=== PATIENT | female | born 1990 ===

== ENCOUNTER 2017-04-07 02:17 | Inpatient (IN) | payer MEDICAID ==
[2017-04-07] MEDS ORDERED: Carboprost Tromethamine 250 MCG/1 ML Amp IM PRN (02:35)
[2017-04-07] MEDS ORDERED: Sodium Chloride 0.9% 10 ML Syringe FLUSH PRN ×2 (02:35→19:39)
[2017-04-07] MEDS ORDERED: Misoprostol 200 MCG Tab PO PRN (02:35)
[2017-04-07] MEDS ORDERED: Ampicillin 2 GM in Sodium Chloride 0.9% 100 ML IV ONE (02:35)
[2017-04-07] MEDS ORDERED: Sodium Chloride 0.9% 2.5 ML Syringe FLUSH PRN ×2 (02:35→19:39)
[2017-04-07] MEDS ORDERED: Water For Irrigation,Sterile 1,000 ML Container IRR PRN (02:35)
[2017-04-07] MEDS ORDERED: Methylergonovine 0.2 MG/1 ML Amp IM PRN (02:35)
[2017-04-07] MEDS ORDERED: Lidocaine 1% 50 ML MDV INJECT PRN (02:35)
[2017-04-07] MEDS ORDERED: Butorphanol 1 MG/ML SDV IVPUSH PRN (02:35)
[2017-04-07] MEDS ORDERED: Nalbuphine 10 MG/1 ML Vial IVPUSH PRN ×2 (02:35→20:20)
[2017-04-07] MEDS ORDERED: Oxytocin/Lactated Ringers 30 UNIT/500 ML BAG IV SCH ×2 (02:45→11:45)
[2017-04-07] MEDS: Lactated Ringers 1,000 ML IV SCH ×4 (02:45→15:15)
[2017-04-07] MEDS ORDERED: fentaNYL 100 MCG/2 ML SDV ONE ×3 (03:24→20:15)
[2017-04-07] MEDS ORDERED: Ropivacaine HCl/PF 100 ML ONE ×3 (03:25→15:58)
--- NOTE | 2017-04-07 03:54 | PCM.PREANE ---
Preanesthetic Assessment - Anesthesia/Transfusion/Family Hx Anesthesia History: Prior Anesthesia Without Reaction Transfusion History: No Prior Transfusion(s) - Review of Systems General: No Symptoms Pulmonary: No Symptoms Cardiovascular: Other (recent elevated BP) Gastrointestinal: Nausea, Vomiting Neurological: No Symptoms Other: Reports: Anxiety - Physical Assessment NPO Status Date: 04/07/17 NPO Status Time: 03:51 (sips/chips) Height: 5 ft 3 in Weight: 145 lb 1.027 oz ASA Class: 2 Mental Status: Alert & Oriented x3 Airway Class: Mallampati = 2 Dentition: Reports: Normal Dentition Thyro-Mental Finger Breadths: 3 Mouth Opening Finger Breadths: 3 ROM/Head Extension: Full Lungs: Clear to auscultation, Normal respiratory effort Cardiovascular: Regular Rate, Regular Rhythm - Allergies Allergies/Adverse Reactions: Allergies Allergy/AdvReac Type Severity Reaction Status Date / Time No Known Allergies Allergy Verified 04/17/16 00:10 - Blood Blood Available: No Product(s) Available: None - Anesthesia Plan Free Text/Narrative:: Labor Epidural - Acknowledgements Anesthesia Type Planned: Epidural Pt an Appropriate Candidate for the Planned Anesthesia: Yes Alternatives and Risks of Anesthesia Discussed w Pt/Guardian: Yes Pt/Guardian Understands and Agrees with Anesthesia Plan: Yes PreAnesthesia Questionnaire Cardiovascular History: Reports: Other (See Below) (elevated BP with starting yesterday) Respiratory History: Reports: Asthma (as a child) Gastrointestinal History: Reports: GERD, Helicobacter Pylori Genitourinary History: Reports: None Musculoskeletal History: Reports: None Neurological History: Reports: None Psychiatric History: Reports: None Endocrine/Metabolic History: Reports: None Hematologic History: Reports: None Immunologic History: Reports: None Oncologic (Cancer) History: Reports: None Dermatologic History: Reports: None - Past Surgical History HEENT Surgical History: Reports: Oral Surgery GI Surgical History: Reports: EGD - SUBSTANCE USE Smoking Status *Q: Former Smoker (quit a few years ago) Tobacco Use Within Last Twelve Months: No Recreational Drug Use History: No - HOME MEDS Home Medications: Home Meds . [No Known Home Meds] 04/12/16 [History] - CURRENT (IN HOUSE) MEDS Current Meds: Current Medications Butorphanol Tartrate (Stadol) 1 mg IVPUSH Q1H PRN PRN Reason: Pain Carboprost Tromethamine (Hemabate Ds) 250 mcg IM ASDIRECTED PRN PRN Reason: Post Hemorrhage Ampicillin Sodium 1 gm/ Sodium (Chloride) 50 mls @ 100 mls/hr IV Q4H OBED Lactated Ringer's (Ringers, Lactated) 1,000 mls @ 150 mls/hr IV ASDIRECTED OBED Oxytocin/Lactated Ringer's (Pitocin In Lr 30 Units/500 Ml) 30 unit in 500 mls @ 250 mls/hr IV TITRATE OBED PRN Reason: 250 MUNITS/MIN Stop: 04/07/17 04:44 Lidocaine HCl (Xylocaine 1%) 50 ml INJECT .ONCE PRN PRN Reason: Laceration repair Methylergonovine Maleate (Methergine) 0.2 mg IM ASDIRECTED PRN PRN Reason: Post Hemorrhage Misoprostol (Cytotec) 200 mcg PO .ONCE PRN PRN Reason: Post Hemorrhage Nalbuphine HCl (Nubain) 10 mg IVPUSH Q1H PRN PRN Reason: Pain (severe 7-10) Stop: 04/07/17 04:36 Sodium Chloride (Saline Flush) 10 ml FLUSH ASDIRECTED PRN PRN Reason: Keep Vein Open Sodium Chloride (Saline Flush) 2.5 ml FLUSH ASDIRECTED PRN PRN Reason: Keep Vein Open Sterile Water (Sterile Water For Irrigation) 1,000 ml IRR ASDIRECTED PRN PRN Reason: delivery Discontinued Medications Fentanyl (Sublimaze) Confirm Administered Dose 100 mcg .ROUTE .STK-MED ONE Stop: 04/07/17 03:25 Ampicillin Sodium 2 gm/ Sodium (Chloride) 100 mls @ 200 mls/hr IV ONETIME ONE Stop: 04/07/17 03:04 Ropivacaine (Naropin 0.2%) Confirm Administered Dose 100 mls @ as directed .ROUTE .STK-MED ONE Stop: 04/07/17 03:26
[2017-04-07] MEDS ORDERED: Gentamicin 40 MG/ML 2 ML Vial IV SCH (04:30)
[2017-04-07] MEDS ORDERED: Acetaminophen 500 MG Tab PO ONE ×2 (04:36→16:18)
[2017-04-07] MEDS: Ampicillin 1 GM in Sodium Chloride 0.9% 50 ML IV SCH ×4 (06:38→18:27)
[2017-04-07] MEDS ORDERED: Oxytocin/Lactated Ringers 30 UNIT/500 ML BAG ONE (11:33)
[2017-04-07] MEDS ORDERED: Bupivacaine 0.5% 10 ML SDV ONE ×3 (15:09→19:42)
[2017-04-07] MEDS ORDERED: Acetaminophen 500 MG Tab ONE (16:16)
[2017-04-07] MEDS ORDERED: ceFAZolin 2 GM in Premix Bag 1 BAG IV ONE (19:39)
[2017-04-07] MEDS ORDERED: Citric Acid/Sodium Citrate Solution 30 ML Cup PO SCH (19:45)
[2017-04-07] MEDS ORDERED: Lactated Ringers 1,000 ML IV SCH ×2 (19:45→21:00)
[2017-04-07] MEDS ORDERED: ceFAZolin 1 GM Vial ONE (19:56)
[2017-04-07] MEDS ORDERED: Ondansetron 4 MG/2 ML SDV ONE (19:56)
[2017-04-07] MEDS ORDERED: Oxytocin 10 Units/1 ML SDV ONE (19:56)
[2017-04-07] MEDS ORDERED: ePHEDrine 50 MG/ML SDV ONE (19:56)
[2017-04-07] MEDS ORDERED: Phenylephrine/Normal Saline 100 MCG/ML 10 ML Syringe ONE (20:16)
[2017-04-07] MEDS ORDERED: Naloxone 0.4 MG/ML Syringe IVPUSH PRN (20:20)
[2017-04-07] MEDS ORDERED: fentaNYL 100 MCG/2 ML SDV IVPUSH PRN (20:20)
[2017-04-07] MEDS ORDERED: Acetaminophen/oxyCODONE 325-5 MG Tab PO PRN ×2 (20:20→20:51)
[2017-04-07] MEDS ORDERED: Metoclopramide 10 MG/2 ML SDV ONE (20:29)
--- NOTE | 2017-04-07 20:50 | PCM.SN ---
- Free Text/Narrative Note: Called for . Please refer to OR record for further anesthesia charting.
[2017-04-07] MEDS ORDERED: Aluminum Hydroxide/Magnesium Hydroxide/Simethicone Susp 30 ML Cup PO PRN (20:51)
[2017-04-07] MEDS ORDERED: Bisacodyl 10 MG Supp RECTAL PRN (20:51)
[2017-04-07] MEDS ORDERED: Lanolin 100% Cream 7 GM Tube TOP PRN (20:51)
[2017-04-07] MEDS ORDERED: Ondansetron 4 MG/2 ML SDV IV PRN (20:51)
[2017-04-07] MEDS ORDERED: diphenhydrAMINE 50 MG/ML SDV IVPUSH PRN (20:51)
[2017-04-07] MEDS ORDERED: Simethicone 80 MG Tab.Chew PO PRN (20:51)
--- NOTE | 2017-04-07 21:06 | PCM.OPNOTE ---
- General Post-Op/Procedure Note Date of Surgery/Procedure: 04/07/17 Operative Procedure(s): Primary LTCS Findings: Viable female APGARs 7, 8 weight 3970 gm. Intact meconium stained placenta with 3V cord Pre Op Diagnosis: 39/6 week IUP. Arrest of dilation. meconium stained fluid. maternal fever/III Post-Op Diagnosis: same Anesthesia Technique: Spinal Primary Surgeon: Lena Doyle Fluid Replacement, Intraop: 1,000 Output, Urine Amount: 200 EBL in mLs: 1,000 Complications: none known Condition: Good Free Text/Narrative:: Dictation [id number]
[2017-04-07] MEDS ORDERED: Ketorolac 30 MG/ML SDV ONE (21:08)
--- NOTE | 2017-04-07 21:10 | PCM.POSTAN ---
POST ANESTHESIA ASSESSMENT - MENTAL STATUS Mental Status: alert, oriented - VITAL SIGNS Pulse Rate: 128 (EBL 1000) SaO2: 96 (2 LPM) Resp Rate: 20 Blood Pressure: 112/84 - RESPIRATORY Respiratory Status: respiratory rate WNL, airway patent, O2 saturation stable - CARDIOVASCULAR CV Status: pulse rate WNL, blood pressure stable - GASTROINTESTINAL GI Status: no symptoms - PAIN Pain Score: 0 - POST OP HYDRATION Hydration Status: adequate & stable
[2017-04-07] MEDS ORDERED: Morphine PF 10 MG/10 ML SDV ONE (21:39)
[2017-04-08] MEDS: Acetaminophen/oxyCODONE 325-5 MG Tab PO PRN (00:36)
--- NOTE | 2017-04-08 01:52 | OR ---
SURGEON: Lena Doyle M.D. DATE OF PROCEDURE: 04/07/2017 PREOPERATIVE DIAGNOSES: 1. A 39 and 6 weeks intrauterine . 2. Arrest of dilation. 3. Meconium-stained amniotic fluid. 4. Maternal fever. POSTOPERATIVE DIAGNOSES: 1. A 39 and 6 weeks intrauterine . 2. Arrest of dilation. 3. Meconium-stained amniotic fluid. 4. Maternal fever. PROCEDURE: Primary low transverse section. ANESTHESIA: Spinal. ESTIMATED BLOOD LOSS: 1000 mL. FLUID: 1000 mL crystalloid in OR. FINDINGS: Viable female, Apgars 7 at 1 minute, 8 at 5 minutes, weight of 3970 g. Meconium- stained amniotic fluid. Meconium-stained placenta with 3-vessel cord. Normal appearing pelvis. DISPOSITION: Patient to PACU in fair condition. to nursery. PROCEDURE IN DETAIL: Javier calvillo 26-year-old, primigravida at 39 and 6 weeks' gestational age, who was admitted on the early childhood teacher assistant of 04/07/2017, labor throughout the day. Had meconium-stained amniotic fluid. heart tones were intermittently between 150-180. After making minimal cervical change between the hours of 4:00 a.m. and 10:00 a.m., she was initiated on Pitocin, at that time, she was found to be 7 cm. She did not progress beyond 7 cm throughout the course of the day. An IUPC was placed. There was some dysfunctional pattern with uterine activity; however, despite efforts at increasing the Pitocin, there was still no cervical change. I assumed care of the patient shortly after 6:00 p.m. On my evaluation, the cervix feels swollen. Her heart tones are in the 150s to 160s with minimal variability. No accelerations are present. The patient has been on ampicillin and gentamicin. After discussion with her and her significant other regarding progress through the day and options at this point, they are opting to proceed with delivery. Risks of the procedure have been discussed with her including infection, bleeding, possible trauma surrounding bowel, bladder, ureter, in case of excessive blood loss, need for blood product transfusion, rare lifesaving circumstances, need for hysterectomy, risk for thromboembolic event, risk of anesthesia were discussed. The patient was taken to the operating room, where she had re-bolus of her epidural. She was placed in dorsal supine position with leftward tilt. SCDs to lower extremities. Cesar to gravity. Prepped and draped in usual sterile fashion. She received 2 g of Ancef. A time-out was performed. Anesthesia was tested and found to be adequate. A Pfannenstiel skin incision was now created, carried down to the level of the rectus fascia, was incised in midline, laterally either side sharply and bluntly. The superior aspect of fascia was tented up, dissected sharply and bluntly from underlying muscles. In similar aspect, it was performed with the inferior aspect of the fascia. Rectus muscle was in the midline. Peritoneum was lateralized bluntly. Uterine position and position palpated. Self-retaining retractor now gently placed. The uterovesical reflection was visualized. Bladder flap was created sharply and bluntly. Bladder was mobilized away from lower uterine segment. Low transverse hysterotomy was now performed. Uterine cavity was entered with the blunt end of the scalpel. Hysterotomy was lateralized bluntly. The fetus head was flexed and elevated from the pelvis. Fundal pressure was applied. The infant's head was delivered followed by anterior shoulder push, remainder of the body without difficulty. 's oropharynx and nares bulb suctioned. Cord clamped x2 and handed off to attending physician, Dr. Childers. Cord arterial, cord venous, cord blood sampling was obtained. Placenta was now delivered. We sent to Pathology for analysis. The uterine cavity was cleared of all clot and debris. Hysterotomy was repaired using 0 Vicryl in continuous running locked fashion followed by a re-imbricating layer. The areas of bleeding in midline were replicated with [id number] suture. Hemostasis was thereafter evident. Posterior aspect of the uterus inspected, no defects or hematomas found be forming. The region was well irrigated suction dried. Uterus remains slightly boggy, therefore the patient received dosing of Hemabate. Uterus returned to the abdominal cavity. Colonic gutters were cleared of all clot and debris. Hysterotomy was again inspected, found to be hemostatic, self- retaining retractor now gently removed. Hysterotomy was again inspected, found to be hemostatic. The rectus muscles reapproximated using 0 Vicryl in inverted mattress suture technique. Anterior aspect of the muscle, posterior aspect of the fascia closely inspected. Any areas of oozing were cauterized. The rectus fascia was reapproximated using 0 Vicryl in continuous running fashion beginning laterally and tied in the midline. Subcutaneous tissue was well irrigated suction dried. Any oozing was cauterized. The skin edges were reapproximated using 3-0 Vicryl in a Bob needle in subcuticular fashion followed by reinforcement with 1/2- inch Steri-Strips and Mastisol. Sponge, instrument, needle count correct x2. Uterine massage revealed that the uterus is remaining firm and hemostasis appears evident. The patient will go to PACU in fair condition. Infant to nursery. RAMBO / CLAUDETTE /[id number]
[2017-04-08] MEDS: Ampicillin/Sulbactam Na 1.5 GM in Sodium Chloride 0.9% 50 ML IV SCH ×4 (03:38→21:46)
[2017-04-08] MEDS: Ketorolac 30 MG/ML SDV IVPUSH SCH ×4 (03:48→21:35)
--- NOTE | 2017-04-08 05:03 | PCM.PNPP ---
- General Info Date of Service: 04/08/17 Functional Status: Reports: pain controlled, tolerating diet - Review of Systems General: Denies: Fever, Weakness Cardiovascular: Denies: Chest Pain, Palpitations, Lightheadedness Gastrointestinal: Reports: Abdominal pain (incisional pain is controlled). Denies: Nausea, Vomiting Genitourinary: Denies: flank pain Psychiatric: Reports: no symptoms - General Info Date of Service: 04/08/17 - Patient Data Vital Signs - most recent: Last Vital Signs Temp 37.0 C 04/08/17 04:00 Pulse 117 H 04/08/17 04:00 Resp 16 04/08/17 04:00 BP 117/68 04/08/17 04:00 Pulse Ox 97 04/08/17 04:00 Weight - most recent: 82 kg I&O - last 24 hours: Intake & Output 04/07/17 04/07/17 04/08/17 14:59 22:59 06:59 Intake Total 2000 900 Output Total 600 850 Balance 1400 50 Lab Results - last 24 hrs: Laboratory Results - last 24 hr 04/07/17 04/07/17 04/07/17 Range/Units 04:30 05:41 05:41 WBC 16.82 H (4.0-11.0) K/uL RBC 3.65 L (4.30-5.90) M/uL Hgb 9.5 L (12.0-16.0) g/dL Hct 29.0 L (36.0-46.0) % MCV 79.5 L (80.0-98.0) fL MCH 26.0 L (27.0-32.0) pg MCHC 32.8 (31.0-37.0) g/dL RDW Std Deviation 41.9 (28.0-62.0) fl RDW Coeff of Carlos 15 (11.0-15.0) % Plt Count 193 (150-400) K/uL MPV 9.80 (7.40-12.00) fL Neut % (Auto) (48.0-80.0) % Lymph % (Auto) (16.0-40.0) % [place] % (Auto) (0.0-15.0) % Eos % (Auto) (0.0-7.0) % Baso % (Auto) (0.0-1.5) % Neut # (Auto) (1.4-5.7) K/uL Lymph # (Auto) (0.6-2.4) K/uL Norton # (Auto) (0.0-0.8) K/uL Eos # (Auto) (0.0-0.7) K/uL Baso # (Auto) (0.0-0.1) K/uL Neutrophils % (Manual) (48.0-80.0) % Band Neutrophils % % Lymphocytes % (Manual) (16.0-40.0) % Monocytes % (Manual) (0.0-15.0) % Nucleated RBC % 0.0 /100WBC Absolute Seg Neuts Band Neutrophils # Lymphocytes # (Manual) Monocytes # (Manual) Nucleated RBCs # 0 K/uL Urine Color YELLOW Urine Appearance CLEAR Urine pH 5.5 (5.0-8.0) Ur Specific [place] <= 1.005 (1.001-1.035) Urine Protein NEGATIVE (NEGATIVE) mg/dL Urine Glucose (UA) NEGATIVE (NEGATIVE) mg/dL Urine Ketones 15 H (NEGATIVE) mg/dL Urine Occult Blood TRACE-INTACT (NEGATIVE) Urine Nitrite NEGATIVE (NEGATIVE) Urine Bilirubin NEGATIVE (NEGATIVE) Urine Urobilinogen 0.2 (<2.0) EU/dL Ur Leukocyte Esterase NEGATIVE (NEGATIVE) Blood Type O POSITIVE Antibody Screen NEGATIVE 04/07/17 Range/Units 21:52 WBC 18.20 H (4.0-11.0) K/uL RBC 3.14 L (4.30-5.90) M/uL Hgb 8.1 L (12.0-16.0) g/dL Hct 25.2 L (36.0-46.0) % MCV 80.3 (80.0-98.0) fL MCH 25.8 L (27.0-32.0) pg MCHC 32.1 (31.0-37.0) g/dL RDW Std Deviation 43.4 (28.0-62.0) fl RDW Coeff of Carlos 15 (11.0-15.0) % Plt Count 183 (150-400) K/uL MPV 9.30 (7.40-12.00) fL Neut % (Auto) 89.8 H (48.0-80.0) % Lymph % (Auto) 7.0 L (16.0-40.0) % Norton % (Auto) 3.2 (0.0-15.0) % Eos % (Auto) 0.0 (0.0-7.0) % Baso % (Auto) 0.0 (0.0-1.5) % Neut # (Auto) 16.3 H (1.4-5.7) K/uL Lymph # (Auto) 1.3 (0.6-2.4) K/uL Norton # (Auto) 0.6 (0.0-0.8) K/uL Eos # (Auto) 0.0 (0.0-0.7) K/uL Baso # (Auto) 0.0 (0.0-0.1) K/uL Neutrophils % (Manual) 68 (48.0-80.0) % Band Neutrophils % 19 % Lymphocytes % (Manual) 9 L (16.0-40.0) % Monocytes % (Manual) 4 (0.0-15.0) % Nucleated RBC % 0.0 /100WBC Absolute Seg Neuts 12.4 Band Neutrophils # 3.5 Lymphocytes # (Manual) 1.6 Monocytes # (Manual) 0.7 Nucleated RBCs # 0 K/uL Urine Color Urine Appearance Urine pH (5.0-8.0) Ur Specific [place] (1.001-1.035) Urine Protein (NEGATIVE) mg/dL Urine Glucose (UA) (NEGATIVE) mg/dL Urine Ketones (NEGATIVE) mg/dL Urine Occult Blood (NEGATIVE) Urine Nitrite (NEGATIVE) Urine Bilirubin (NEGATIVE) Urine Urobilinogen (<2.0) EU/dL Ur Leukocyte Esterase (NEGATIVE) Blood Type Antibody Screen Med Orders - Current: Current Medications Al Hydroxide/Mg Hydroxide (Mag-Al Plus) 30 ml PO Q8H PRN PRN Reason: Heartburn Bisacodyl (Dulcolax) 10 mg RECTAL .ONCE PRN PRN Reason: Constipation Carboprost Tromethamine (Hemabate Ds) 250 mcg IM ASDIRECTED PRN PRN Reason: Post Hemorrhage Diphenhydramine HCl (Benadryl) 25 mg IVPUSH Q6H PRN PRN Reason: Itching or Nausea Docusate Sodium (Colace) 100 mg PO BID OBED Emollient Ointment (Lansinoh Hpa) 0 gm TOP ASDIRECTED PRN PRN Reason: Sore Nipples Fentanyl (Sublimaze) 50 mcg IVPUSH Q5M PRN PRN Reason: Pain (severe 7-10) Stop: 04/08/17 20:20 Lactated Ringer's (Ringers, Lactated) 1,000 mls @ 150 mls/hr IV ASDIRECTED [facility] Last Admin: 04/07/17 15:15 Dose: 150 mls/hr Gentamicin Sulfate 100 mg/ (Sodium Chloride) 52.5 mls @ 105 mls/hr IV Q8H [facility] Last Admin: 04/07/17 12:43 Dose: 105 mls/hr Oxytocin/Lactated Ringer's (Pitocin In Lr 30 Units/500 Ml) 30 unit in 500 mls @ 2 mls/hr IV TITRATE OBED; 2 MUNITS/MIN PRN Reason: Protocol Last Titration: 04/07/17 19:05 Dose: 32 munits/min, 32 mls/hr Lactated Ringer's (Ringers, Lactated) 1,000 mls @ 500 mls/hr IV ASDIRECTED [facility] Stop: 04/08/17 21:44 Lactated Ringer's (Ringers, Lactated) 1,000 mls @ 125 mls/hr IV ASDIRECTED [facility] Ampicillin Sodium/Sulbactam (Sodium 1.5 gm/ Sodium Chloride) 50 mls @ 200 mls/ hr IV Q6H [facility] Last Admin: 04/08/17 03:38 Dose: 200 mls/hr Ibuprofen (Motrin) 800 mg PO Q8H PRN PRN Reason: mild pain or fever Ketorolac Tromethamine (Toradol) 30 mg IVPUSH Q6H [facility] Stop: 04/08/17 21:01 Last Admin: 04/08/17 03:48 Dose: 30 mg Methylergonovine Maleate (Methergine) 0.2 mg IM ASDIRECTED PRN PRN Reason: Post Hemorrhage Nalbuphine HCl (Nubain) 5 mg IVPUSH Q3H PRN PRN Reason: Pruritis Stop: 04/08/17 20:20 Naloxone HCl (Narcan) 0.1 mg IVPUSH ONETIME PRN PRN Reason: Respiratory Depression Stop: 04/08/17 20:21 Ondansetron HCl (Zofran) 4 mg IV Q4H PRN PRN Reason: Nausea/Vomiting Oxycodone/Acetaminophen (Percocet 325-5 Mg) 2 tab PO ONETIME PRN PRN Reason: Pain (moderate 4-6) Oxycodone/Acetaminophen (Percocet 325-5 Mg) 1 tab PO Q4H PRN PRN Reason: Pain (moderate 4-6) Last Admin: 04/08/17 00:36 Dose: 1 tab Oxycodone/Acetaminophen (Percocet 325-5 Mg) 2 tab PO Q4H PRN PRN Reason: Pain (moderate 4-6) Simethicone (Simethicone) 80 mg PO Q4H PRN PRN Reason: Gas Sodium Chloride (Saline Flush) 2.5 ml FLUSH ASDIRECTED PRN PRN Reason: Keep Vein Open Discontinued Medications Acetaminophen (Tylenol Extra Strength) 1,000 mg PO ONETIME ONE Stop: 04/07/17 04:37 Last Admin: 04/07/17 05:01 Dose: 1,000 mg Acetaminophen (Tylenol Extra Strength) 1,000 mg PO ONETIME ONE Stop: 04/07/17 16:19 Last Admin: 04/07/17 16:19 Dose: 1,000 mg Acetaminophen (Tylenol Extra Strength) Confirm Administered Dose 1,000 mg .ROUTE .STK-MED ONE Stop: 04/07/17 16:17 Bupivacaine HCl (Sensorcaine-Mpf 0.5%) Confirm Administered Dose 10 ml .ROUTE .STK-MED ONE Stop: 04/07/17 15:10 Bupivacaine HCl (Sensorcaine-Mpf 0.5%) Confirm Administered Dose 10 ml .ROUTE .STK-MED ONE Stop: 04/07/17 15:36 Bupivacaine HCl (Sensorcaine-Mpf 0.5%) Confirm Administered Dose 20 ml .ROUTE .STK-MED ONE Stop: 04/07/17 19:43 Butorphanol Tartrate (Stadol) 1 mg IVPUSH Q1H PRN PRN Reason: Pain Last Admin: 04/07/17 02:59 Dose: 1 mg Cefazolin Sodium (Ancef) Confirm Administered Dose 2 gm .ROUTE .STK-MED ONE Stop: 04/07/17 19:57 Citric Acid/Sodium Citrate (Bicitra Solution) 30 ml PO .ONCE OBED Ephedrine Sulfate (Ephedrine Sulfate) Confirm Administered Dose 50 mg .ROUTE .STK-MED ONE Stop: 04/07/17 19:57 Fentanyl (Sublimaze) Confirm Administered Dose 100 mcg .ROUTE .STK-MED ONE Stop: 04/07/17 03:25 Fentanyl (Sublimaze) Confirm Administered Dose 100 mcg .ROUTE .STK-MED ONE Stop: 04/07/17 15:36 Fentanyl (Sublimaze) Confirm Administered Dose 100 mcg .ROUTE .STK-MED ONE Stop: 04/07/17 20:16 Gentamicin Sulfate (Gentamicin) 100 mg IV Q8H [facility] Ampicillin Sodium 2 gm/ Sodium (Chloride) 100 mls @ 200 mls/hr IV ONETIME ONE Stop: 04/07/17 03:04 Last Admin: 04/07/17 03:18 Dose: 200 mls/hr Ampicillin Sodium 1 gm/ Sodium (Chloride) 50 mls @ 100 mls/hr IV Q4H [facility] Last Admin: 04/07/17 18:27 Dose: 100 mls/hr Oxytocin/Lactated Ringer's (Pitocin In Lr 30 Units/500 Ml) 30 unit in 500 mls @ 250 mls/hr IV TITRATE [facility] PRN Reason: 250 MUNITS/MIN Stop: 04/07/17 04:44 Ropivacaine (Naropin 0.2%) Confirm Administered Dose 100 mls @ as directed .ROUTE .STK-MED ONE Stop: 04/07/17 03:26 Oxytocin/Lactated Ringer's (Pitocin In Lr 30 Units/500 Ml) Confirm Administered Dose 30 unit in 500 mls @ as directed .ROUTE .ST-MED ONE Stop: 04/07/17 11:34 Ropivacaine (Naropin 0.2%) Confirm Administered Dose 100 mls @ as directed .ROUTE .STK-MED ONE Stop: 04/07/17 12:28 Ropivacaine (Naropin 0.2%) Confirm Administered Dose 100 mls @ as directed .ROUTE .STK-MED ONE Stop: 04/07/17 15:59 Cefazolin Sodium/Dextrose 2 gm (/ Premix) 50 mls @ 100 mls/hr IV ONETIME ONE Stop: 04/07/17 20:08 Ketorolac Tromethamine (Toradol) Confirm Administered Dose 30 mg .ROUTE .STK- MED ONE Stop: 04/07/17 21:09 Last Admin: 04/07/17 21:21 Dose: 30 mg Lidocaine HCl (Xylocaine 1%) 50 ml INJECT .ONCE PRN PRN Reason: Laceration repair Metoclopramide HCl (Reglan) Confirm Administered Dose 10 mg .ROUTE .STK-MED ONE Stop: 04/07/17 20:30 Misoprostol (Cytotec) 200 mcg PO .ONCE PRN PRN Reason: Post Hemorrhage Morphine Sulfate (Duramorph Pf) Confirm Administered Dose 10 mg .ROUTE .STK-MED ONE Stop: 04/07/17 21:40 Nalbuphine HCl (Nubain) 10 mg IVPUSH Q1H PRN PRN Reason: Pain (severe 7-10) Stop: 04/07/17 04:36 Ondansetron HCl (Zofran) Confirm Administered Dose 8 mg .ROUTE .STK-MED ONE Stop: 04/07/17 19:57 Oxytocin (Pitocin) Confirm Administered Dose 30 unit .ROUTE .STK-MED ONE Stop: 04/07/17 19:57 Phenylephrine HCl (Phenylephrine In Ns 100 Mcg/Ml) Confirm Administered Dose 1 mg .ROUTE .STK-MED ONE Stop: 04/07/17 20:17 Sodium Chloride (Saline Flush) 10 ml FLUSH ASDIRECTED PRN PRN Reason: Keep Vein Open Sodium Chloride (Saline Flush) 10 ml FLUSH ASDIRECTED PRN PRN Reason: Keep Vein Open Sodium Chloride (Saline Flush) 2.5 ml FLUSH ASDIRECTED PRN PRN Reason: Keep Vein Open Sterile Water (Sterile Water For Irrigation) 1,000 ml IRR ASDIRECTED PRN PRN Reason: delivery - Interaction Support Person: Significant Other - Recovery Exam Lochia Amount: None Lochia Color: Rubra/Red Perineum Description: Intact, Minimal Bruising/Swelling - Exam General: alert, oriented Lungs: Clear to auscultation, Normal respiratory effort Cardiovascular: Regular Rhythm, Tachycardia Abdomen: bowel sounds present, soft. No: CVA tenderness Extremities: no calf tenderness, edema (1+ pedal edema) Skin: warm, dry Wound/Incisions: dressing dry and intact Neurological: no new focal deficit Psy/Mental Status: alert, normal affect - Problem List & Annotations (1) delivery delivered SNOMED Code(s): 650901817 Code(s): O82 - ENCOUNTER FOR DELIVERY WITHOUT INDICATION Status: Acute Current Visit: Yes - Problem List Review Problem List Initiated/Reviewed/Updated: Yes - My Orders Last 24 Hours: My Active Orders 04/07/17 19:39 Procedure Site Prep Instruct [RC] ASDIRECTED Verify Patient Consent Obtain [RC] ASDIRECTED Peripheral IV Insertion Adult [OM.PC] Routine 04/07/17 19:45 Lactated Ringers [Ringers, Lactated] 1,000 ml IV ASDIRECTED 04/07/17 20:51 Patient Status [ADT] Routine Ambulate [RC] PER UNIT ROUTINE Communication Order [RC] PER UNIT ROUTINE Communication Order [RC] PER UNIT ROUTINE Communication Order [RC] Per Unit Routine May Shower [RC] ASDIRECTED Notify Provider Intake and Out [RC] ASDIRECTED Notify Provider Vital Signs [RC] ASDIRECTED RT Incentive Spirometry [RC] Q2HWA Vital Signs [RC] PER UNIT ROUTINE Acetaminophen/oxyCODONE [Percocet 325-5 MG] 1 tab PO Q4H PRN Acetaminophen/oxyCODONE [Percocet 325-5 MG] 2 tab PO Q4H PRN Alum Hydrox/Mag Hydrox/Simeth [Mag-Al Plus] 30 ml PO Q8H PRN Bisacodyl [Dulcolax] 10 mg RECTAL .ONCE PRN Ibuprofen [Motrin] 800 mg PO Q8H PRN Lanolin [Lansinoh HPA] See Dose Instructions TOP ASDIRECTED PRN Ondansetron [Zofran] 4 mg IV Q4H PRN Simethicone 80 mg PO Q4H PRN diphenhydrAMINE [Benadryl] 25 mg IVPUSH Q6H PRN Abdominal Binder [OM.PC] Routine Assess Lochia [WOMSER] Per Unit Routine Assess Uterine Involution [WOMSER] Per Unit Routine Breast Pump [WOMSER] Per Unit Routine Heat Therapy [OM.PC] Routine Ice Therapy [OM.PC] Routine Peripheral IV Discontinue [OM.PC] Routine Sequential Compression Device [OM.PC] Per Unit Routine 04/07/17 20:52 Antiembolic Devices [RC] PER UNIT ROUTINE 04/07/17 21:00 Docusate Sodium [Colace] 100 mg PO BID Lactated Ringers [Ringers, Lactated] 1,000 ml IV ASDIRECTED 04/07/17 Dinner Regular Diet [DIET] 04/08/17 02:00 Ampicillin/Sulbactam Na [Unasyn] 1.5 gm Sodium Chloride 0.9% [Normal Saline] 50 ml IV Q6H 04/08/17 03:00 Ketorolac [Toradol] 30 mg IVPUSH Q6H - Assessment Assessment:: POD 1 status post Primary LTCS Maternal fever in labor - Plan Plan:: Continue postoperative cares. Ambulate today, remove jiménez later Reevaluate hemoglobin today--was 8.1 last night from 9.5 upon admission Continue 24 hour unasyn prophylaxis for maternal fever in labor
[2017-04-08] MEDS: Lactated Ringers 1,000 ML IV SCH (06:14)
--- NOTE | 2017-04-08 06:43 | PCM48HPAN ---
Post Anesthesia Note - EVALUATION WITHIN 48HRS OF ANESTHETIC Vital Signs in Normal Range: Yes Patient Participated in Evaluation: Yes Respiratory Function Stable: Yes Airway Patent: Yes Cardiovascular Function Stable: Yes Hydration Status Stable: Yes Pain Control Satisfactory: Yes Nausea and Vomiting Control Satisfactory: Yes Mental Status Recovered: Yes - COMMENTS/OBSERVATIONS Free Text/Narrative:: PO and IV pain RX started during NOC. Pain well controlled at this time. Awaiting AM HgB results.
[2017-04-08] MEDS: Docusate Sodium 100 MG Cap PO SCH (21:36)
[2017-04-09] MEDS: Ampicillin/Sulbactam Na 1.5 GM in Sodium Chloride 0.9% 50 ML IV SCH ×2 (05:03→10:45)
[2017-04-09] MEDS: Docusate Sodium 100 MG Cap PO SCH ×5 (06:40→21:22)
--- NOTE | 2017-04-09 07:01 | PCM.PNPP ---
- General Info Date of Service: 04/09/17 Functional Status: Reports: pain controlled (has not been using any pain medication.), tolerating diet, ambulating (no dizziness or shortness of breath with ambulation), urinating - Review of Systems General: Reports: No Symptoms HEENT: Reports: no symptoms Pulmonary: Reports: no symptoms Cardiovascular: Reports: No Symptoms Gastrointestinal: Reports: No symptoms Genitourinary: Reports: no symptoms Musculoskeletal: Reports: no symptoms Skin: Reports: no symptoms Neurological: Reports: No Symptoms Psychiatric: Reports: no symptoms - Patient Data Vital Signs - most recent: Last Vital Signs Temp 36.1 C 04/09/17 05:01 Pulse 113 H 04/09/17 05:01 Resp 16 04/09/17 05:01 BP 139/86 04/09/17 05:01 Pulse Ox 95 04/09/17 05:01 Weight - most recent: 82 kg I&O - last 24 hours: Intake & Output 04/08/17 04/08/17 04/09/17 14:59 22:59 06:59 Intake Total 120 Output Total 875 Balance -755 Lab Results - last 24 hrs: Laboratory Results - last 24 hr 04/08/17 Range/Units 07:22 WBC 19.93 H (4.0-11.0) K/uL RBC 2.61 L (4.30-5.90) M/uL Hgb 7.0 L (12.0-16.0) g/dL Hct 20.6 L (36.0-46.0) % MCV 78.9 L (80.0-98.0) fL MCH 26.8 L (27.0-32.0) pg MCHC 34.0 (31.0-37.0) g/dL RDW Std Deviation 43.2 (28.0-62.0) fl RDW Coeff of Carlos 15 (11.0-15.0) % Plt Count 169 (150-400) K/uL MPV 9.40 (7.40-12.00) fL Add Manual Diff YES Neutrophils % (Manual) 58 (48.0-80.0) % Band Neutrophils % 23 % Lymphocytes % (Manual) 16 (16.0-40.0) % Monocytes % (Manual) 2 (0.0-15.0) % Metamyelocytes % 1 % Nucleated RBC % 0.0 /100WBC Absolute Seg Neuts 11.6 Band Neutrophils # 4.6 Lymphocytes # (Manual) 3.2 Monocytes # (Manual) 0.4 Absolute Metamyelocyte 0.2 Nucleated RBCs # 0 K/uL Med Orders - Current: Current Medications Al Hydroxide/Mg Hydroxide (Mag-Al Plus) 30 ml PO Q8H PRN PRN Reason: Heartburn Bisacodyl (Dulcolax) 10 mg RECTAL .ONCE PRN PRN Reason: Constipation Carboprost Tromethamine (Hemabate Ds) 250 mcg IM ASDIRECTED PRN PRN Reason: Post Hemorrhage Diphenhydramine HCl (Benadryl) 25 mg IVPUSH Q6H PRN PRN Reason: Itching or Nausea Docusate Sodium (Colace) 100 mg PO BID [facility] Last Admin: 04/09/17 06:40 Dose: Not Given Emollient Ointment (Lansinoh Hpa) 0 gm TOP ASDIRECTED PRN PRN Reason: Sore Nipples Last Admin: 04/08/17 09:25 Dose: 1 applic Lactated Ringer's (Ringers, Lactated) 1,000 mls @ 150 mls/hr IV ASDIRECTED [facility] Last Admin: 04/08/17 06:14 Dose: 150 mls/hr Lactated Ringer's (Ringers, Lactated) 1,000 mls @ 125 mls/hr IV ASDIRECTED [facility] Ampicillin Sodium/Sulbactam (Sodium 1.5 gm/ Sodium Chloride) 50 mls @ 200 mls/ hr IV Q6H [facility] Last Admin: 04/09/17 05:03 Dose: Not Given Ibuprofen (Motrin) 800 mg PO Q8H PRN PRN Reason: mild pain or fever Methylergonovine Maleate (Methergine) 0.2 mg IM ASDIRECTED PRN PRN Reason: Post Hemorrhage Ondansetron HCl (Zofran) 4 mg IV Q4H PRN PRN Reason: Nausea/Vomiting Oxycodone/Acetaminophen (Percocet 325-5 Mg) 2 tab PO ONETIME PRN PRN Reason: Pain (moderate 4-6) Oxycodone/Acetaminophen (Percocet 325-5 Mg) 1 tab PO Q4H PRN PRN Reason: Pain (moderate 4-6) Last Admin: 04/08/17 00:36 Dose: 1 tab Oxycodone/Acetaminophen (Percocet 325-5 Mg) 2 tab PO Q4H PRN PRN Reason: Pain (moderate 4-6) Simethicone (Simethicone) 80 mg PO Q4H PRN PRN Reason: Gas Sodium Chloride (Saline Flush) 2.5 ml FLUSH ASDIRECTED PRN PRN Reason: Keep Vein Open Discontinued Medications Acetaminophen (Tylenol Extra Strength) 1,000 mg PO ONETIME ONE Stop: 04/07/17 04:37 Last Admin: 04/07/17 05:01 Dose: 1,000 mg Acetaminophen (Tylenol Extra Strength) 1,000 mg PO ONETIME ONE Stop: 04/07/17 16:19 Last Admin: 04/07/17 16:19 Dose: 1,000 mg Acetaminophen (Tylenol Extra Strength) Confirm Administered Dose 1,000 mg .ROUTE .STK-MED ONE Stop: 04/07/17 16:17 Last Admin: 04/08/17 23:18 Dose: Not Given Bupivacaine HCl (Sensorcaine-Mpf 0.5%) Confirm Administered Dose 10 ml .ROUTE .STK-MED ONE Stop: 04/07/17 15:10 Last Admin: 04/08/17 23:18 Dose: Not Given Bupivacaine HCl (Sensorcaine-Mpf 0.5%) Confirm Administered Dose 10 ml .ROUTE .STK-MED ONE Stop: 04/07/17 15:36 Last Admin: 04/08/17 23:18 Dose: Not Given Bupivacaine HCl (Sensorcaine-Mpf 0.5%) Confirm Administered Dose 20 ml .ROUTE .STK-MED ONE Stop: 04/07/17 19:43 Last Admin: 04/08/17 23:21 Dose: Not Given Butorphanol Tartrate (Stadol) 1 mg IVPUSH Q1H PRN PRN Reason: Pain Last Admin: 04/07/17 02:59 Dose: 1 mg Cefazolin Sodium (Ancef) Confirm Administered Dose 2 gm .ROUTE .STK-MED ONE Stop: 04/07/17 19:57 Citric Acid/Sodium Citrate (Bicitra Solution) 30 ml PO .ONCE OBED Ephedrine Sulfate (Ephedrine Sulfate) Confirm Administered Dose 50 mg .ROUTE .STK-MED ONE Stop: 04/07/17 19:57 Fentanyl (Sublimaze) Confirm Administered Dose 100 mcg .ROUTE .STK-MED ONE Stop: 04/07/17 03:25 Last Admin: 04/08/17 23:17 Dose: Not Given Fentanyl (Sublimaze) Confirm Administered Dose 100 mcg .ROUTE .STK-MED ONE Stop: 04/07/17 15:36 Last Admin: 04/08/17 23:18 Dose: Not Given Fentanyl (Sublimaze) Confirm Administered Dose 100 mcg .ROUTE .STK-MED ONE Stop: 04/07/17 20:16 Fentanyl (Sublimaze) 50 mcg IVPUSH Q5M PRN PRN Reason: Pain (severe 7-10) Stop: 04/08/17 20:20 Gentamicin Sulfate (Gentamicin) 100 mg IV Q8H [facility] Ampicillin Sodium 2 gm/ Sodium (Chloride) 100 mls @ 200 mls/hr IV ONETIME ONE Stop: 04/07/17 03:04 Last Admin: 04/07/17 03:18 Dose: 200 mls/hr Ampicillin Sodium 1 gm/ Sodium (Chloride) 50 mls @ 100 mls/hr IV Q4H [facility] Last Admin: 04/07/17 18:27 Dose: 100 mls/hr Oxytocin/Lactated Ringer's (Pitocin In Lr 30 Units/500 Ml) 30 unit in 500 mls @ 250 mls/hr IV TITRATE [facility] PRN Reason: 250 MUNITS/MIN Stop: 04/07/17 04:44 Last Admin: 04/08/17 23:12 Dose: Not Given Ropivacaine (Naropin 0.2%) Confirm Administered Dose 100 mls @ as directed .ROUTE .STK-MED ONE Stop: 04/07/17 03:26 Last Admin: 04/08/17 23:17 Dose: Not Given Gentamicin Sulfate 100 mg/ (Sodium Chloride) 52.5 mls @ 105 mls/hr IV Q8H [facility] Last Admin: 04/07/17 12:43 Dose: 105 mls/hr Oxytocin/Lactated Ringer's (Pitocin In Lr 30 Units/500 Ml) Confirm Administered Dose 30 unit in 500 mls @ as directed .ROUTE .STK-MED ONE Stop: 04/07/17 11:34 Last Admin: 04/08/17 23:17 Dose: Not Given Oxytocin/Lactated Ringer's (Pitocin In Lr 30 Units/500 Ml) 30 unit in 500 mls @ 2 mls/hr IV TITRATE OBED; 2 MUNITS/MIN PRN Reason: Protocol Last Titration: 04/07/17 19:05 Dose: 32 munits/min, 32 mls/hr Ropivacaine (Naropin 0.2%) Confirm Administered Dose 100 mls @ as directed .ROUTE .STK-MED ONE Stop: 04/07/17 12:28 Last Admin: 04/08/17 23:17 Dose: Not Given Ropivacaine (Naropin 0.2%) Confirm Administered Dose 100 mls @ as directed .ROUTE .STK-MED ONE Stop: 04/07/17 15:59 Last Admin: 04/08/17 23:18 Dose: Not Given Lactated Ringer's (Ringers, Lactated) 1,000 mls @ 500 mls/hr IV ASDIRECTED [facility] Stop: 04/08/17 21:44 Cefazolin Sodium/Dextrose 2 gm (/ Premix) 50 mls @ 100 mls/hr IV ONETIME ONE Stop: 04/07/17 20:08 Ketorolac Tromethamine (Toradol) 30 mg IVPUSH Q6H [facility] Stop: 04/08/17 21:01 Last Admin: 04/08/17 21:35 Dose: 30 mg Ketorolac Tromethamine (Toradol) Confirm Administered Dose 30 mg .ROUTE .STK- MED ONE Stop: 04/07/17 21:09 Last Admin: 04/07/17 21:21 Dose: 30 mg Lidocaine HCl (Xylocaine 1%) 50 ml INJECT .ONCE PRN PRN Reason: Laceration repair Metoclopramide HCl (Reglan) Confirm Administered Dose 10 mg .ROUTE .STK-MED ONE Stop: 04/07/17 20:30 Misoprostol (Cytotec) 200 mcg PO .ONCE PRN PRN Reason: Post Hemorrhage Morphine Sulfate (Duramorph Pf) Confirm Administered Dose 10 mg .ROUTE .STK-MED ONE Stop: 04/07/17 21:40 Nalbuphine HCl (Nubain) 10 mg IVPUSH Q1H PRN PRN Reason: Pain (severe 7-10) Stop: 04/07/17 04:36 Nalbuphine HCl (Nubain) 5 mg IVPUSH Q3H PRN PRN Reason: Pruritis Stop: 04/08/17 20:20 Naloxone HCl (Narcan) 0.1 mg IVPUSH ONETIME PRN PRN Reason: Respiratory Depression Stop: 04/08/17 20:21 Ondansetron HCl (Zofran) Confirm Administered Dose 8 mg .ROUTE .STK-MED ONE Stop: 04/07/17 19:57 Oxytocin (Pitocin) Confirm Administered Dose 30 unit .ROUTE .STK-MED ONE Stop: 04/07/17 19:57 Phenylephrine HCl (Phenylephrine In Ns 100 Mcg/Ml) Confirm Administered Dose 1 mg .ROUTE .STK-MED ONE Stop: 04/07/17 20:17 Sodium Chloride (Saline Flush) 10 ml FLUSH ASDIRECTED PRN PRN Reason: Keep Vein Open Sodium Chloride (Saline Flush) 10 ml FLUSH ASDIRECTED PRN PRN Reason: Keep Vein Open Sodium Chloride (Saline Flush) 2.5 ml FLUSH ASDIRECTED PRN PRN Reason: Keep Vein Open Sterile Water (Sterile Water For Irrigation) 1,000 ml IRR ASDIRECTED PRN PRN Reason: delivery - Infant Interaction Disposition, : in Room with Family Interaction: Holding Infant Feeding: Breastfed ; Nursed Well Support Person: Significant Other - Recovery Exam Fundal Tone: Firm Fundal Level: 1 Fingerbreadths Below Umbilicus Fundal Placement: Midline Lochia Amount: Scant Lochia Color: Rubra/Red Perineum Description: Intact, Minimal Bruising/Swelling Episiotomy/Laceration: None Bladder Status: Voiding Urinary Elimination: Voided - Exam General: alert, oriented HEENT: Pupils equal Neck: supple Lungs: Clear to auscultation, Normal respiratory effort Cardiovascular: Regular Rate, Regular Rhythm Abdomen: bowel sounds present, soft, no tenderness, no distension Extremities: No: no edema (1+ equal bilaterally. ) Skin: warm, dry, intact Wound/Incisions: healing well Neurological: no new focal deficit Psy/Mental Status: alert, normal affect, normal mood - Problem List & Annotations (1) Anemia affecting in third trimester SNOMED Code(s): 03827823, 03480560 Code(s): O99.013 - ANEMIA COMPLICATING , THIRD TRIMESTER Status: Acute Current Visit: Yes (2) delivery delivered SNOMED Code(s): 112218288 Code(s): O82 - ENCOUNTER FOR DELIVERY WITHOUT INDICATION Status: Acute Current Visit: Yes - Problem List Review Problem List Initiated/Reviewed/Updated: Yes - Assessment Assessment:: POD 2 status post Primary LTCS. Afebrile since delivery. Anemia of , exacerbated by operative blood loss. Tolerating anemia at this time with mild tachycardia - Plan Plan:: Continue postoperative care hemoglobin 7 today, will recheck in am as she is tolerating at this time.
[2017-04-09] MEDS: Ibuprofen 800 MG Tab PO PRN ×2 (08:15→21:24)
[2017-04-09] MEDS: Ferrous Sulfate 325 MG Tab PO SCH ×2 (08:15→17:12)
--- NOTE | 2017-04-10 08:10 | PCM.PNPP ---
- General Info Date of Service: 04/10/17 Functional Status: Reports: pain controlled, tolerating diet, ambulating (feels dizzy when up), urinating, new symptoms (very fatigued) - Review of Systems General: Reports: No Symptoms HEENT: Reports: no symptoms Pulmonary: Reports: no symptoms Cardiovascular: Reports: No Symptoms Gastrointestinal: Reports: No symptoms Genitourinary: Reports: no symptoms Musculoskeletal: Reports: no symptoms Skin: Reports: no symptoms Neurological: Reports: No Symptoms Psychiatric: Reports: no symptoms - Patient Data Vital Signs - most recent: Last Vital Signs Temp 36.5 C 04/10/17 07:44 Pulse 92 04/10/17 07:44 Resp 18 04/10/17 07:44 BP 138/94 H 04/10/17 07:44 Pulse Ox 96 04/10/17 04:00 Weight - most recent: 82 kg Lab Results - last 24 hrs: Laboratory Results - last 24 hr 04/10/17 Range/Units 05:40 WBC 15.08 H (4.0-11.0) K/uL RBC 2.01 L (4.30-5.90) M/uL Hgb 5.3 L (12.0-16.0) g/dL Hct 16.3 L (36.0-46.0) % MCV 81.1 (80.0-98.0) fL MCH 26.4 L (27.0-32.0) pg MCHC 32.5 (31.0-37.0) g/dL RDW Std Deviation 45.6 (28.0-62.0) fl RDW Coeff of Carlos 15 (11.0-15.0) % Plt Count 221 (150-400) K/uL MPV 9.30 (7.40-12.00) fL Nucleated RBC % 1.0 /100WBC Nucleated RBCs # 0 K/uL Med Orders - Current: Current Medications Al Hydroxide/Mg Hydroxide (Mag-Al Plus) 30 ml PO Q8H PRN PRN Reason: Heartburn Bisacodyl (Dulcolax) 10 mg RECTAL .ONCE PRN PRN Reason: Constipation Carboprost Tromethamine (Hemabate Ds) 250 mcg IM ASDIRECTED PRN PRN Reason: Post Hemorrhage Diphenhydramine HCl (Benadryl) 25 mg IVPUSH Q6H PRN PRN Reason: Itching or Nausea Docusate Sodium (Colace) 100 mg PO BID [facility] Last Admin: 04/09/17 21:22 Dose: 100 mg Emollient Ointment (Lansinoh Hpa) 0 gm TOP ASDIRECTED PRN PRN Reason: Sore Nipples Last Admin: 04/08/17 09:25 Dose: 1 applic Ferrous Sulfate (Ferrous Sulfate) 325 mg PO BIDMEALS [facility] Last Admin: 04/09/17 17:12 Dose: 325 mg Lactated Ringer's (Ringers, Lactated) 1,000 mls @ 150 mls/hr IV ASDIRECTED [facility] Last Admin: 04/08/17 06:14 Dose: 150 mls/hr Lactated Ringer's (Ringers, Lactated) 1,000 mls @ 125 mls/hr IV ASDIRECTED [facility] Ibuprofen (Motrin) 800 mg PO Q8H PRN PRN Reason: mild pain or fever Last Admin: 04/09/17 21:24 Dose: 800 mg Methylergonovine Maleate (Methergine) 0.2 mg IM ASDIRECTED PRN PRN Reason: Post Hemorrhage Ondansetron HCl (Zofran) 4 mg IV Q4H PRN PRN Reason: Nausea/Vomiting Oxycodone/Acetaminophen (Percocet 325-5 Mg) 2 tab PO ONETIME PRN PRN Reason: Pain (moderate 4-6) Oxycodone/Acetaminophen (Percocet 325-5 Mg) 1 tab PO Q4H PRN PRN Reason: Pain (moderate 4-6) Last Admin: 04/08/17 00:36 Dose: 1 tab Oxycodone/Acetaminophen (Percocet 325-5 Mg) 2 tab PO Q4H PRN PRN Reason: Pain (moderate 4-6) Last Admin: 04/09/17 13:29 Dose: 2 tab Simethicone (Simethicone) 80 mg PO Q4H PRN PRN Reason: Gas Sodium Chloride (Saline Flush) 2.5 ml FLUSH ASDIRECTED PRN PRN Reason: Keep Vein Open Discontinued Medications Acetaminophen (Tylenol Extra Strength) 1,000 mg PO ONETIME ONE Stop: 04/07/17 04:37 Last Admin: 04/07/17 05:01 Dose: 1,000 mg Acetaminophen (Tylenol Extra Strength) 1,000 mg PO ONETIME ONE Stop: 04/07/17 16:19 Last Admin: 04/07/17 16:19 Dose: 1,000 mg Acetaminophen (Tylenol Extra Strength) Confirm Administered Dose 1,000 mg .ROUTE .STK-MED ONE Stop: 04/07/17 16:17 Last Admin: 04/08/17 23:18 Dose: Not Given Bupivacaine HCl (Sensorcaine-Mpf 0.5%) Confirm Administered Dose 10 ml .ROUTE .STK-MED ONE Stop: 04/07/17 15:10 Last Admin: 04/08/17 23:18 Dose: Not Given Bupivacaine HCl (Sensorcaine-Mpf 0.5%) Confirm Administered Dose 10 ml .ROUTE .STK-MED ONE Stop: 04/07/17 15:36 Last Admin: 04/08/17 23:18 Dose: Not Given Bupivacaine HCl (Sensorcaine-Mpf 0.5%) Confirm Administered Dose 20 ml .ROUTE .STK-MED ONE Stop: 04/07/17 19:43 Last Admin: 04/08/17 23:21 Dose: Not Given Butorphanol Tartrate (Stadol) 1 mg IVPUSH Q1H PRN PRN Reason: Pain Last Admin: 04/07/17 02:59 Dose: 1 mg Cefazolin Sodium (Ancef) Confirm Administered Dose 2 gm .ROUTE .STK-MED ONE Stop: 04/07/17 19:57 Citric Acid/Sodium Citrate (Bicitra Solution) 30 ml PO .ONCE OBED Ephedrine Sulfate (Ephedrine Sulfate) Confirm Administered Dose 50 mg .ROUTE .STK-MED ONE Stop: 04/07/17 19:57 Fentanyl (Sublimaze) Confirm Administered Dose 100 mcg .ROUTE .STK-MED ONE Stop: 04/07/17 03:25 Last Admin: 04/08/17 23:17 Dose: Not Given Fentanyl (Sublimaze) Confirm Administered Dose 100 mcg .ROUTE .STK-MED ONE Stop: 04/07/17 15:36 Last Admin: 04/08/17 23:18 Dose: Not Given Fentanyl (Sublimaze) Confirm Administered Dose 100 mcg .ROUTE .STK-MED ONE Stop: 04/07/17 20:16 Fentanyl (Sublimaze) 50 mcg IVPUSH Q5M PRN PRN Reason: Pain (severe 7-10) Stop: 04/08/17 20:20 Gentamicin Sulfate (Gentamicin) 100 mg IV Q8H OBED Ampicillin Sodium 2 gm/ Sodium (Chloride) 100 mls @ 200 mls/hr IV ONETIME ONE Stop: 04/07/17 03:04 Last Admin: 04/07/17 03:18 Dose: 200 mls/hr Ampicillin Sodium 1 gm/ Sodium (Chloride) 50 mls @ 100 mls/hr IV Q4H [facility] Last Admin: 04/07/17 18:27 Dose: 100 mls/hr Oxytocin/Lactated Ringer's (Pitocin In Lr 30 Units/500 Ml) 30 unit in 500 mls @ 250 mls/hr IV TITRATE OB[facility] PRN Reason: 250 MUNITS/MIN Stop: 04/07/17 04:44 Last Admin: 04/08/17 23:12 Dose: Not Given Ropivacaine (Naropin 0.2%) Confirm Administered Dose 100 mls @ as directed .ROUTE .ST-MED ONE Stop: 04/07/17 03:26 Last Admin: 04/08/17 23:17 Dose: Not Given Gentamicin Sulfate 100 mg/ (Sodium Chloride) 52.5 mls @ 105 mls/hr IV Q8H [facility] Last Admin: 04/07/17 12:43 Dose: 105 mls/hr Oxytocin/Lactated Ringer's (Pitocin In Lr 30 Units/500 Ml) Confirm Administered Dose 30 unit in 500 mls @ as directed .ROUTE .STK-MED ONE Stop: 04/07/17 11:34 Last Admin: 04/08/17 23:17 Dose: Not Given Oxytocin/Lactated Ringer's (Pitocin In Lr 30 Units/500 Ml) 30 unit in 500 mls @ 2 mls/hr IV TITRATE OB[facility]; 2 MUNITS/MIN PRN Reason: Protocol Last Titration: 04/07/17 19:05 Dose: 32 munits/min, 32 mls/hr Ropivacaine (Naropin 0.2%) Confirm Administered Dose 100 mls @ as directed .ROUTE .STK-MED ONE Stop: 04/07/17 12:28 Last Admin: 04/08/17 23:17 Dose: Not Given Ropivacaine (Naropin 0.2%) Confirm Administered Dose 100 mls @ as directed .ROUTE .STK-MED ONE Stop: 04/07/17 15:59 Last Admin: 04/08/17 23:18 Dose: Not Given Lactated Ringer's (Ringers, Lactated) 1,000 mls @ 500 mls/hr IV ASDIRECTED [facility] Stop: 04/08/17 21:44 Cefazolin Sodium/Dextrose 2 gm (/ Premix) 50 mls @ 100 mls/hr IV ONETIME ONE Stop: 04/07/17 20:08 Ampicillin Sodium/Sulbactam (Sodium 1.5 gm/ Sodium Chloride) 50 mls @ 200 mls/ hr IV Q6H [facility] Last Admin: 04/09/17 10:45 Dose: Not Given Ketorolac Tromethamine (Toradol) 30 mg IVPUSH Q6H [facility] Stop: 04/08/17 21:01 Last Admin: 04/08/17 21:35 Dose: 30 mg Ketorolac Tromethamine (Toradol) Confirm Administered Dose 30 mg .ROUTE .STK- MED ONE Stop: 04/07/17 21:09 Last Admin: 04/07/17 21:21 Dose: 30 mg Lidocaine HCl (Xylocaine 1%) 50 ml INJECT .ONCE PRN PRN Reason: Laceration repair Metoclopramide HCl (Reglan) Confirm Administered Dose 10 mg .ROUTE .STK-MED ONE Stop: 04/07/17 20:30 Misoprostol (Cytotec) 200 mcg PO .ONCE PRN PRN Reason: Post Hemorrhage Morphine Sulfate (Duramorph Pf) Confirm Administered Dose 10 mg .ROUTE .STK-MED ONE Stop: 04/07/17 21:40 Nalbuphine HCl (Nubain) 10 mg IVPUSH Q1H PRN PRN Reason: Pain (severe 7-10) Stop: 04/07/17 04:36 Nalbuphine HCl (Nubain) 5 mg IVPUSH Q3H PRN PRN Reason: Pruritis Stop: 04/08/17 20:20 Naloxone HCl (Narcan) 0.1 mg IVPUSH ONETIME PRN PRN Reason: Respiratory Depression Stop: 04/08/17 20:21 Ondansetron HCl (Zofran) Confirm Administered Dose 8 mg .ROUTE .STK-MED ONE Stop: 04/07/17 19:57 Oxytocin (Pitocin) Confirm Administered Dose 30 unit .ROUTE .STK-MED ONE Stop: 04/07/17 19:57 Phenylephrine HCl (Phenylephrine In Ns 100 Mcg/Ml) Confirm Administered Dose 1 mg .ROUTE .STK-MED ONE Stop: 04/07/17 20:17 Sodium Chloride (Saline Flush) 10 ml FLUSH ASDIRECTED PRN PRN Reason: Keep Vein Open Sodium Chloride (Saline Flush) 10 ml FLUSH ASDIRECTED PRN PRN Reason: Keep Vein Open Sodium Chloride (Saline Flush) 2.5 ml FLUSH ASDIRECTED PRN PRN Reason: Keep Vein Open Sterile Water (Sterile Water For Irrigation) 1,000 ml IRR ASDIRECTED PRN PRN Reason: delivery - Infant Interaction Disposition, : [place] in Room with Family Infant Interaction: Holding Feeding: Breastfed Infant; Nursed Well Support Person: Significant Other - Recovery Exam Fundal Tone: Firm Fundal Level: 1 Fingerbreadths Below Umbilicus Fundal Placement: Midline Lochia Amount: Scant Lochia Color: Rubra/Red Perineum Description: Intact, Minimal Bruising/Swelling Episiotomy/Laceration: None Bladder Status: Voiding Urinary Elimination: Voided - Exam General: alert, oriented HEENT: Pupils equal Neck: supple Lungs: Clear to auscultation, Normal respiratory effort Cardiovascular: Regular Rate, Regular Rhythm Abdomen: bowel sounds present, soft, no tenderness, no distension Extremities: no edema Skin: warm, dry, intact Wound/Incisions: healing well Neurological: no new focal deficit Psy/Mental Status: alert, normal affect, normal mood - Problem List & Annotations (1) Anemia affecting in third trimester SNOMED Code(s): 09735925, 12093299 Code(s): O99.013 - ANEMIA COMPLICATING , THIRD TRIMESTER Status: Acute Current Visit: Yes (2) delivery delivered SNOMED Code(s): 233677190 Code(s): O82 - ENCOUNTER FOR DELIVERY WITHOUT INDICATION Status: Acute Current Visit: Yes - Problem List Review Problem List Initiated/Reviewed/Updated: Yes - My Orders Last 24 Hours: My Active Orders 04/09/17 08:00 Ferrous Sulfate 325 mg PO BIDMEALS 04/10/17 08:03 RED BLOOD CELLS LP [BBK] Urgent Acetaminophen [Tylenol] 650 mg PO NOW ONE Furosemide [Lasix] 20 mg IVPUSH ONETIME ONE diphenhydrAMINE [Benadryl] 25 mg IV ONETIME ONE Transfuse PRBC [Transfuse Red Blood Cells] [COMM] Urgent 04/10/17 08:04 Verify Patient Consent Obtain [RC] ASDIRECTED 04/10/17 16:03 HEMOGLOBIN/HEMATOCRIT,HH [HEME] Timed - Assessment Assessment:: POD 3 status post Primary LTCS. Afebrile since delivery. Anemia of , exacerbated by operative blood loss now with additional drop in hemoglobin, abdomen is benign, this is consistent with fluid shift, there is no evidence of acitve bleeding. She is more symptomatic with anemia at this time, discussed option of transfusion versus continued observation of anemia, with iron supplementation. She desires to proceed with transfusion, the risks were discussed including transfusion reaction, lab error and infectious disease. She understands . Due to her hemoglobin being at 5.3, I have offered 2 or 4 units of blood and she desires 4 units which should get her to her pre-delivery level. - Plan Plan:: Continue care, proceed with transfusion as discussed above.
[2017-04-10] MEDS ORDERED: Furosemide 20 MG/2 ML VIAL IVPUSH ONE (08:25)
[2017-04-10] MEDS ORDERED: Acetaminophen 325 MG Tab PO ONE (08:25)
[2017-04-10] MEDS ORDERED: diphenhydrAMINE 50 MG/ML SDV IV ONE (08:25)
[2017-04-10] MEDS: Ferrous Sulfate 325 MG Tab PO SCH ×2 (09:03→17:12)
[2017-04-10] MEDS: Docusate Sodium 100 MG Cap PO SCH (09:03)
[2017-04-10] MEDS ORDERED: Furosemide 20 MG/2 ML VIAL ONE (17:25)
[2017-04-11] MEDS: Docusate Sodium 100 MG Cap PO SCH ×2 (00:38→08:23)
[2017-04-11] MEDS: Acetaminophen/oxyCODONE 325-5 MG Tab PO PRN (02:00)
[2017-04-11 08:04] VITALS: BP 138/82
[2017-04-11] MEDS: Ferrous Sulfate 325 MG Tab PO SCH (08:23)
--- NOTE | 2017-04-11 08:42 | PCM.PNPP ---
[id number] Status: Reports: pain controlled, tolerating diet, ambulating, urinating - Review of Systems General: Denies: Fever, Weakness, Fatigue Pulmonary: Denies: shortness of breath, pleuritic chest pain, cough Cardiovascular: Denies: Chest Pain, Palpitations, Dyspnea on Exertion Gastrointestinal: Denies: Abdominal pain Genitourinary: Denies: dysuria Psychiatric: Reports: no symptoms - General Info Date of Service: 04/11/17 - Patient Data Vital Signs - most recent: Last Vital Signs Temp 36.9 C 04/11/17 07:40 Pulse 78 04/11/17 07:40 Resp 20 04/11/17 07:40 BP 138/82 04/11/17 07:40 Pulse Ox 97 04/11/17 07:40 Weight - most recent: 82 kg I&O - last 24 hours: Intake & Output 04/10/17 04/11/17 04/11/17 22:59 06:59 14:59 Intake Total 700 Balance 700 Lab Results - last 24 hrs: Laboratory Results - last 24 hr 04/07/17 04/10/17 Range/Units 05:41 21:30 Hgb 10.2 L (12.0-16.0) g/dL Hct 30.0 L (36.0-46.0) % Blood Type O POSITIVE Antibody Screen NEGATIVE Crossmatch See Detail Med Orders - Current: Current Medications Al Hydroxide/Mg Hydroxide (Mag-Al Plus) 30 ml PO Q8H PRN PRN Reason: Heartburn Bisacodyl (Dulcolax) 10 mg RECTAL .ONCE PRN PRN Reason: Constipation Carboprost Tromethamine (Hemabate Ds) 250 mcg IM ASDIRECTED PRN PRN Reason: Post Hemorrhage Diphenhydramine HCl (Benadryl) 25 mg IVPUSH Q6H PRN PRN Reason: Itching or Nausea Docusate Sodium (Colace) 100 mg PO BID [facility] Last Admin: 04/11/17 08:23 Dose: 100 mg Emollient Ointment (Lansinoh Hpa) 0 gm TOP ASDIRECTED PRN PRN Reason: Sore Nipples Last Admin: 04/08/17 09:25 Dose: 1 applic Ferrous Sulfate (Ferrous Sulfate) 325 mg PO BIDMEALS [facility] Last Admin: 04/11/17 08:23 Dose: 325 mg Lactated Ringer's (Ringers, Lactated) 1,000 mls @ 150 mls/hr IV ASDIRECTED OBED Last Admin: 04/08/17 06:14 Dose: 150 mls/hr Lactated Ringer's (Ringers, Lactated) 1,000 mls @ 125 mls/hr IV ASDIRECTED [facility] Ibuprofen (Motrin) 800 mg PO Q8H PRN PRN Reason: mild pain or fever Last Admin: 04/09/17 21:24 Dose: 800 mg Methylergonovine Maleate (Methergine) 0.2 mg IM ASDIRECTED PRN PRN Reason: Post Hemorrhage Ondansetron HCl (Zofran) 4 mg IV Q4H PRN PRN Reason: Nausea/Vomiting Oxycodone/Acetaminophen (Percocet 325-5 Mg) 2 tab PO ONETIME PRN PRN Reason: Pain (moderate 4-6) Oxycodone/Acetaminophen (Percocet 325-5 Mg) 1 tab PO Q4H PRN PRN Reason: Pain (moderate 4-6) Last Admin: 04/11/17 02:00 Dose: 1 tab Oxycodone/Acetaminophen (Percocet 325-5 Mg) 2 tab PO Q4H PRN PRN Reason: Pain (moderate 4-6) Last Admin: 04/09/17 13:29 Dose: 2 tab Simethicone (Simethicone) 80 mg PO Q4H PRN PRN Reason: Gas Sodium Chloride (Saline Flush) 2.5 ml FLUSH ASDIRECTED PRN PRN Reason: Keep Vein Open Discontinued Medications Acetaminophen (Tylenol Extra Strength) 1,000 mg PO ONETIME ONE Stop: 04/07/17 04:37 Last Admin: 04/07/17 05:01 Dose: 1,000 mg Acetaminophen (Tylenol Extra Strength) 1,000 mg PO ONETIME ONE Stop: 04/07/17 16:19 Last Admin: 04/07/17 16:19 Dose: 1,000 mg Acetaminophen (Tylenol Extra Strength) Confirm Administered Dose 1,000 mg .ROUTE .STK-MED ONE Stop: 04/07/17 16:17 Last Admin: 04/08/17 23:18 Dose: Not Given Acetaminophen (Tylenol) 650 mg PO NOW ONE Stop: 04/10/17 08:26 Last Admin: 04/10/17 09:03 Dose: 650 mg Bupivacaine HCl (Sensorcaine-Mpf 0.5%) Confirm Administered Dose 10 ml .ROUTE .STK-MED ONE Stop: 04/07/17 15:10 Last Admin: 04/08/17 23:18 Dose: Not Given Bupivacaine HCl (Sensorcaine-Mpf 0.5%) Confirm Administered Dose 10 ml .ROUTE .STK-MED ONE Stop: 04/07/17 15:36 Last Admin: 04/08/17 23:18 Dose: Not Given Bupivacaine HCl (Sensorcaine-Mpf 0.5%) Confirm Administered Dose 20 ml .ROUTE .STK-MED ONE Stop: 04/07/17 19:43 Last Admin: 04/08/17 23:21 Dose: Not Given Butorphanol Tartrate (Stadol) 1 mg IVPUSH Q1H PRN PRN Reason: Pain Last Admin: 04/07/17 02:59 Dose: 1 mg Cefazolin Sodium (Ancef) Confirm Administered Dose 2 gm .ROUTE .STK-MED ONE Stop: 04/07/17 19:57 Citric Acid/Sodium Citrate (Bicitra Solution) 30 ml PO .ONCE OBED Diphenhydramine HCl (Benadryl) 25 mg IV ONETIME ONE Stop: 04/10/17 08:26 Last Admin: 04/10/17 09:03 Dose: 25 mg Ephedrine Sulfate (Ephedrine Sulfate) Confirm Administered Dose 50 mg .ROUTE .STK-MED ONE Stop: 04/07/17 19:57 Fentanyl (Sublimaze) Confirm Administered Dose 100 mcg .ROUTE .STK-MED ONE Stop: 04/07/17 03:25 Last Admin: 04/08/17 23:17 Dose: Not Given Fentanyl (Sublimaze) Confirm Administered Dose 100 mcg .ROUTE .STK-MED ONE Stop: 04/07/17 15:36 Last Admin: 04/08/17 23:18 Dose: Not Given Fentanyl (Sublimaze) Confirm Administered Dose 100 mcg .ROUTE .STK-MED ONE Stop: 04/07/17 20:16 Fentanyl (Sublimaze) 50 mcg IVPUSH Q5M PRN PRN Reason: Pain (severe 7-10) Stop: 04/08/17 20:20 Furosemide (Lasix) 20 mg IVPUSH ONETIME ONE Stop: 04/10/17 08:26 Last Admin: 04/10/17 17:28 Dose: 20 mg Furosemide (Lasix) Confirm Administered Dose 20 mg .ROUTE .[facility] ONE Stop: 04/10/17 17:26 Last Admin: 04/10/17 17:43 Dose: Not Given Gentamicin Sulfate (Gentamicin) 100 mg IV Q8H OBED Ampicillin Sodium 2 gm/ Sodium (Chloride) 100 mls @ 200 mls/hr IV ONETIME ONE Stop: 04/07/17 03:04 Last Admin: 04/07/17 03:18 Dose: 200 mls/hr Ampicillin Sodium 1 gm/ Sodium (Chloride) 50 mls @ 100 mls/hr IV Q4H OBED Last Admin: 04/07/17 18:27 Dose: 100 mls/hr Oxytocin/Lactated Ringer's (Pitocin In Lr 30 Units/500 Ml) 30 unit in 500 mls @ 250 mls/hr IV TITRATE OBED PRN Reason: 250 MUNITS/MIN Stop: 04/07/17 04:44 Last Admin: 04/08/17 23:12 Dose: Not Given Ropivacaine (Naropin 0.2%) Confirm Administered Dose 100 mls @ as directed .ROUTE .[facility] ONE Stop: 04/07/17 03:26 Last Admin: 04/08/17 23:17 Dose: Not Given Gentamicin Sulfate 100 mg/ (Sodium Chloride) 52.5 mls @ 105 mls/hr IV Q8H [facility] Last Admin: 04/07/17 12:43 Dose: 105 mls/hr Oxytocin/Lactated Ringer's (Pitocin In Lr 30 Units/500 Ml) Confirm Administered Dose 30 unit in 500 mls @ as directed .ROUTE .[facility] ONE Stop: 04/07/17 11:34 Last Admin: 04/08/17 23:17 Dose: Not Given Oxytocin/Lactated Ringer's (Pitocin In Lr 30 Units/500 Ml) 30 unit in 500 mls @ 2 mls/hr IV TITRATE OBED; 2 MUNITS/MIN PRN Reason: Protocol Last Titration: 04/07/17 19:05 Dose: 32 munits/min, 32 mls/hr Ropivacaine (Naropin 0.2%) Confirm Administered Dose 100 mls @ as directed .ROUTE .[facility] ONE Stop: 04/07/17 12:28 Last Admin: 04/08/17 23:17 Dose: Not Given Ropivacaine (Naropin 0.2%) Confirm Administered Dose 100 mls @ as directed .ROUTE .STK-MED ONE Stop: 04/07/17 15:59 Last Admin: 04/08/17 23:18 Dose: Not Given Lactated Ringer's (Ringers, Lactated) 1,000 mls @ 500 mls/hr IV ASDIRECTED [facility] Stop: 04/08/17 21:44 Cefazolin Sodium/Dextrose 2 gm (/ Premix) 50 mls @ 100 mls/hr IV ONETIME ONE Stop: 04/07/17 20:08 Ampicillin Sodium/Sulbactam (Sodium 1.5 gm/ Sodium Chloride) 50 mls @ 200 mls/ hr IV Q6H [facility] Last Admin: 04/09/17 10:45 Dose: Not Given Ketorolac Tromethamine (Toradol) 30 mg IVPUSH Q6H [facility] Stop: 04/08/17 21:01 Last Admin: 04/08/17 21:35 Dose: 30 mg Ketorolac Tromethamine (Toradol) Confirm Administered Dose 30 mg .ROUTE .STK- MED ONE Stop: 04/07/17 21:09 Last Admin: 04/07/17 21:21 Dose: 30 mg Lidocaine HCl (Xylocaine 1%) 50 ml INJECT .ONCE PRN PRN Reason: Laceration repair Metoclopramide HCl (Reglan) Confirm Administered Dose 10 mg .ROUTE .STK-MED ONE Stop: 04/07/17 20:30 Misoprostol (Cytotec) 200 mcg PO .ONCE PRN PRN Reason: Post Hemorrhage Morphine Sulfate (Duramorph Pf) Confirm Administered Dose 10 mg .ROUTE .STK-MED ONE Stop: 04/07/17 21:40 Nalbuphine HCl (Nubain) 10 mg IVPUSH Q1H PRN PRN Reason: Pain (severe 7-10) Stop: 04/07/17 04:36 Nalbuphine HCl (Nubain) 5 mg IVPUSH Q3H PRN PRN Reason: Pruritis Stop: 04/08/17 20:20 Naloxone HCl (Narcan) 0.1 mg IVPUSH ONETIME PRN PRN Reason: Respiratory Depression Stop: 07/07/17 20:21 Ondansetron HCl (Zofran) Confirm Administered Dose 8 mg .ROUTE .STK-MED ONE Stop: 04/07/17 19:57 Oxytocin (Pitocin) Confirm Administered Dose 30 unit .ROUTE .STK-MED ONE Stop: 04/07/17 19:57 Phenylephrine HCl (Phenylephrine In Ns 100 Mcg/Ml) Confirm Administered Dose 1 mg .ROUTE .STK-MED ONE Stop: 04/07/17 20:17 Sodium Chloride (Saline Flush) 10 ml FLUSH ASDIRECTED PRN PRN Reason: Keep Vein Open Sodium Chloride (Saline Flush) 10 ml FLUSH ASDIRECTED PRN PRN Reason: Keep Vein Open Sodium Chloride (Saline Flush) 2.5 ml FLUSH ASDIRECTED PRN PRN Reason: Keep Vein Open Sterile Water (Sterile Water For Irrigation) 1,000 ml IRR ASDIRECTED PRN PRN Reason: delivery - Infant Interaction Infant Disposition, : [place] in Room with Family Infant Interaction: Holding Feeding: Breastfed Infant; Nursed Well Support Person: Significant Other - Recovery Exam Fundal Tone: Firm Fundal Level: 1 Fingerbreadths Below Umbilicus Fundal Placement: Midline Lochia Amount: Scant Lochia Color: Rubra/Red Perineum Description: Intact, Minimal Bruising/Swelling Episiotomy/Laceration: None Bladder Status: Nonpalpable, Voiding Urinary Elimination: Voided - Exam General: alert, oriented Neck: supple Lungs: Clear to auscultation, Normal respiratory effort Cardiovascular: Regular Rate, Regular Rhythm Abdomen: bowel sounds present, soft, no tenderness, no distension Extremities: edema (trace) Psy/Mental Status: alert, normal affect, normal mood - Problem List Review Problem List Initiated/Reviewed/Updated: Yes - Assessment Assessment:: POD 4 status post Primary LTCS. Afebrile since delivery. Anemia of , exacerbated by operative blood loss now with additional drop in hemoglobin, abdomen is benign, this is consistent with fluid shift, there is no evidence of active bleeding. Patient's hemoglobin increased to 10.2 from 5.3 after 4 units of blood. Blood pressures stable since dose of Lasix. Discharge home today - will be staying for IV antibiotics. - Plan Plan:: Discharge home today. Nothing in the vagina for 6 weeks. Continue PNV and iron supplementation. Rx for Percocet to use as needed for pain. Instructed patient to call if she develops fever greater than 101 or bleeding through a large pad an hour. No lifting greater than 10lbs for 6 weeks. F/u with [facility] in 2 and 6 weeks. <Lena Doyle - Last Filed: 04/11/17 10:15> - Patient Data Vital Signs - most recent: Last Vital Signs Temp 36.9 C 04/11/17 07:40 Pulse 78 04/11/17 07:40 Resp 20 04/11/17 07:40 BP 138/82 04/11/17 07:40 Pulse Ox 97 04/11/17 07:40 I&O - last 24 hours: Intake & Output 04/10/17 04/11/17 04/11/17 22:59 06:59 14:59 Intake Total 700 Balance 700 Lab Results - last 24 hrs: Laboratory Results - last 24 hr 04/07/17 04/10/17 Range/Units 05:41 21:30 Hgb 10.2 L (12.0-16.0) g/dL Hct 30.0 L (36.0-46.0) % Blood Type O POSITIVE Antibody Screen NEGATIVE Crossmatch See Detail Med Orders - Current: Current Medications Al Hydroxide/Mg Hydroxide (Mag-Al Plus) 30 ml PO Q8H PRN PRN Reason: Heartburn Bisacodyl (Dulcolax) 10 mg RECTAL .ONCE PRN PRN Reason: Constipation Carboprost Tromethamine (Hemabate Ds) 250 mcg IM ASDIRECTED PRN PRN Reason: Post Hemorrhage Diphenhydramine HCl (Benadryl) 25 mg IVPUSH Q6H PRN PRN Reason: Itching or Nausea Docusate Sodium (Colace) 100 mg PO BID [facility] Last Admin: 04/11/17 08:23 Dose: 100 mg Emollient Ointment (Lansinoh Hpa) 0 gm TOP ASDIRECTED PRN PRN Reason: Sore Nipples Last Admin: 04/08/17 09:25 Dose: 1 applic Ferrous Sulfate (Ferrous Sulfate) 325 mg PO BIDMEALS [facility] Last Admin: 04/11/17 08:23 Dose: 325 mg Lactated Ringer's (Ringers, Lactated) 1,000 mls @ 150 mls/hr IV ASDIRECTED [facility] Last Admin: 04/08/17 06:14 Dose: 150 mls/hr Lactated Ringer's (Ringers, Lactated) 1,000 mls @ 125 mls/hr IV ASDIRECTED OBED Ibuprofen (Motrin) 800 mg PO Q8H PRN PRN Reason: mild pain or fever Last Admin: 04/09/17 21:24 Dose: 800 mg Methylergonovine Maleate (Methergine) 0.2 mg IM ASDIRECTED PRN PRN Reason: Post Hemorrhage Ondansetron HCl (Zofran) 4 mg IV Q4H PRN PRN Reason: Nausea/Vomiting Oxycodone/Acetaminophen (Percocet 325-5 Mg) 2 tab PO ONETIME PRN PRN Reason: Pain (moderate 4-6) Oxycodone/Acetaminophen (Percocet 325-5 Mg) 1 tab PO Q4H PRN PRN Reason: Pain (moderate 4-6) Last Admin: 04/11/17 02:00 Dose: 1 tab Oxycodone/Acetaminophen (Percocet 325-5 Mg) 2 tab PO Q4H PRN PRN Reason: Pain (moderate 4-6) Last Admin: 04/09/17 13:29 Dose: 2 tab Simethicone (Simethicone) 80 mg PO Q4H PRN PRN Reason: Gas Sodium Chloride (Saline Flush) 2.5 ml FLUSH ASDIRECTED PRN PRN Reason: Keep Vein Open Discontinued Medications Acetaminophen (Tylenol Extra Strength) 1,000 mg PO ONETIME ONE Stop: 04/07/17 04:37 Last Admin: 04/07/17 05:01 Dose: 1,000 mg Acetaminophen (Tylenol Extra Strength) 1,000 mg PO ONETIME ONE Stop: 04/07/17 16:19 Last Admin: 04/07/17 16:19 Dose: 1,000 mg Acetaminophen (Tylenol Extra Strength) Confirm Administered Dose 1,000 mg .ROUTE .STK-MED ONE Stop: 04/07/17 16:17 Last Admin: 04/08/17 23:18 Dose: Not Given Acetaminophen (Tylenol) 650 mg PO NOW ONE Stop: 04/10/17 08:26 Last Admin: 04/10/17 09:03 Dose: 650 mg Bupivacaine HCl (Sensorcaine-Mpf 0.5%) Confirm Administered Dose 10 ml .ROUTE .STK-MED ONE Stop: 04/07/17 15:10 Last Admin: 04/08/17 23:18 Dose: Not Given Bupivacaine HCl (Sensorcaine-Mpf 0.5%) Confirm Administered Dose 10 ml .ROUTE .STK-MED ONE Stop: 04/07/17 15:36 Last Admin: 04/08/17 23:18 Dose: Not Given Bupivacaine HCl (Sensorcaine-Mpf 0.5%) Confirm Administered Dose 20 ml .ROUTE .STK-MED ONE Stop: 04/07/17 19:43 Last Admin: 04/08/17 23:21 Dose: Not Given Butorphanol Tartrate (Stadol) 1 mg IVPUSH Q1H PRN PRN Reason: Pain Last Admin: 04/07/17 02:59 Dose: 1 mg Cefazolin Sodium (Ancef) Confirm Administered Dose 2 gm .ROUTE .STK-MED ONE Stop: 04/07/17 19:57 Citric Acid/Sodium Citrate (Bicitra Solution) 30 ml PO .ONCE OBED Diphenhydramine HCl (Benadryl) 25 mg IV ONETIME ONE Stop: 04/10/17 08:26 Last Admin: 04/10/17 09:03 Dose: 25 mg Ephedrine Sulfate (Ephedrine Sulfate) Confirm Administered Dose 50 mg .ROUTE .STK-MED ONE Stop: 04/07/17 19:57 Fentanyl (Sublimaze) Confirm Administered Dose 100 mcg .ROUTE .STK-MED ONE Stop: 04/07/17 03:25 Last Admin: 04/08/17 23:17 Dose: Not Given Fentanyl (Sublimaze) Confirm Administered Dose 100 mcg .ROUTE .STK-MED ONE Stop: 04/07/17 15:36 Last Admin: 04/08/17 23:18 Dose: Not Given Fentanyl (Sublimaze) Confirm Administered Dose 100 mcg .ROUTE .STK-MED ONE Stop: 04/07/17 20:16 Fentanyl (Sublimaze) 50 mcg IVPUSH Q5M PRN PRN Reason: Pain (severe 7-10) Stop: 04/08/17 20:20 Furosemide (Lasix) 20 mg IVPUSH ONETIME ONE Stop: 04/10/17 08:26 Last Admin: 04/10/17 17:28 Dose: 20 mg Furosemide (Lasix) Confirm Administered Dose 20 mg .ROUTE .STK-MED ONE Stop: 04/10/17 17:26 Last Admin: 04/10/17 17:43 Dose: Not Given Gentamicin Sulfate (Gentamicin) 100 mg IV Q8H OBED Ampicillin Sodium 2 gm/ Sodium (Chloride) 100 mls @ 200 mls/hr IV ONETIME ONE Stop: 04/07/17 03:04 Last Admin: 04/07/17 03:18 Dose: 200 mls/hr Ampicillin Sodium 1 gm/ Sodium (Chloride) 50 mls @ 100 mls/hr IV Q4H OBED Last Admin: 04/07/17 18:27 Dose: 100 mls/hr Oxytocin/Lactated Ringer's (Pitocin In Lr 30 Units/500 Ml) 30 unit in 500 mls @ 250 mls/hr IV TITRATE OBED PRN Reason: 250 MUNITS/MIN Stop: 04/07/17 04:44 Last Admin: 04/08/17 23:12 Dose: Not Given Ropivacaine (Naropin 0.2%) Confirm Administered Dose 100 mls @ as directed .ROUTE .[facility] ONE Stop: 04/07/17 03:26 Last Admin: 04/08/17 23:17 Dose: Not Given Gentamicin Sulfate 100 mg/ (Sodium Chloride) 52.5 mls @ 105 mls/hr IV Q8H OBED Last Admin: 04/07/17 12:43 Dose: 105 mls/hr Oxytocin/Lactated Ringer's (Pitocin In Lr 30 Units/500 Ml) Confirm Administered Dose 30 unit in 500 mls @ as directed .ROUTE .[facility] ONE Stop: 04/07/17 11:34 Last Admin: 04/08/17 23:17 Dose: Not Given Oxytocin/Lactated Ringer's (Pitocin In Lr 30 Units/500 Ml) 30 unit in 500 mls @ 2 mls/hr IV TITRATE OBED; 2 MUNITS/MIN PRN Reason: Protocol Last Titration: 04/07/17 19:05 Dose: 32 munits/min, 32 mls/hr Ropivacaine (Naropin 0.2%) Confirm Administered Dose 100 mls @ as directed .ROUTE .[facility] ONE Stop: 04/07/17 12:28 Last Admin: 04/08/17 23:17 Dose: Not Given Ropivacaine (Naropin 0.2%) Confirm Administered Dose 100 mls @ as directed .ROUTE .STK-MED ONE Stop: 04/07/17 15:59 Last Admin: 04/08/17 23:18 Dose: Not Given Lactated Ringer's (Ringers, Lactated) 1,000 mls @ 500 mls/hr IV ASDIRECTED [facility] Stop: 04/08/17 21:44 Cefazolin Sodium/Dextrose 2 gm (/ Premix) 50 mls @ 100 mls/hr IV ONETIME ONE Stop: 04/07/17 20:08 Ampicillin Sodium/Sulbactam (Sodium 1.5 gm/ Sodium Chloride) 50 mls @ 200 mls/ hr IV Q6H [facility] Last Admin: 04/09/17 10:45 Dose: Not Given Ketorolac Tromethamine (Toradol) 30 mg IVPUSH Q6H [facility] Stop: 04/08/17 21:01 Last Admin: 04/08/17 21:35 Dose: 30 mg Ketorolac Tromethamine (Toradol) Confirm Administered Dose 30 mg .ROUTE .STK- MED ONE Stop: 04/07/17 21:09 Last Admin: 04/07/17 21:21 Dose: 30 mg Lidocaine HCl (Xylocaine 1%) 50 ml INJECT .ONCE PRN PRN Reason: Laceration repair Metoclopramide HCl (Reglan) Confirm Administered Dose 10 mg .ROUTE .STK-MED ONE Stop: 04/07/17 20:30 Misoprostol (Cytotec) 200 mcg PO .ONCE PRN PRN Reason: Post Hemorrhage Morphine Sulfate (Duramorph Pf) Confirm Administered Dose 10 mg .ROUTE .STK-MED ONE Stop: 04/07/17 21:40 Nalbuphine HCl (Nubain) 10 mg IVPUSH Q1H PRN PRN Reason: Pain (severe 7-10) Stop: 04/07/17 04:36 Nalbuphine HCl (Nubain) 5 mg IVPUSH Q3H PRN PRN Reason: Pruritis Stop: 04/08/17 20:20 Naloxone HCl (Narcan) 0.1 mg IVPUSH ONETIME PRN PRN Reason: Respiratory Depression Stop: 04/08/17 20:21 Ondansetron HCl (Zofran) Confirm Administered Dose 8 mg .ROUTE .STK-MED ONE Stop: 04/07/17 19:57 Oxytocin (Pitocin) Confirm Administered Dose 30 unit .ROUTE .STK-MED ONE Stop: 04/07/17 19:57 Phenylephrine HCl (Phenylephrine In Ns 100 Mcg/Ml) Confirm Administered Dose 1 mg .ROUTE .STK-MED ONE Stop: 04/07/17 20:17 Sodium Chloride (Saline Flush) 10 ml FLUSH ASDIRECTED PRN PRN Reason: Keep Vein Open Sodium Chloride (Saline Flush) 10 ml FLUSH ASDIRECTED PRN PRN Reason: Keep Vein Open Sodium Chloride (Saline Flush) 2.5 ml FLUSH ASDIRECTED PRN PRN Reason: Keep Vein Open Sterile Water (Sterile Water For Irrigation) 1,000 ml IRR ASDIRECTED PRN PRN Reason: delivery - Problem List & Annotations (1) delivery delivered SNOMED Code(s): 041263483 Code(s): O82 - ENCOUNTER FOR DELIVERY WITHOUT INDICATION Status: Acute Current Visit: Yes - Plan Plan:: Patient seen and evaluated--she is feeling well and is ready to be discharged. Rooming in accomodations being made. Prescriptions sent into pharmacy electronically.
== END 2017-04-11 10:38 | disposition home or self-care (01) | DRG 765 ==
LOC: MW.OBCHECK 02:17 → MW.OB 02:18 → MW.OBCHECK 02:35 → MW.OB 02:35 → OBSVTOIN 20:25 → MW.OB 04-08 00:42
PROVIDERS: ADMIT Obstetrics & Gynecology; ATTEND Obstetrics & Gynecology
PROC: 10D00Z1 Extraction of Products of Conception, Low, Open Approach (ICD-10-PCS; principal; 2017-04-07)
PROC: 10907ZC Drainage of Amniotic Fluid, Therapeutic from Products of Conception, Via Natural or Artificial Opening (ICD-10-PCS; 2017-04-07)
PROC: 30233N1 Transfusion of Nonautologous Red Blood Cells into Peripheral Vein, Percutaneous Approach (ICD-10-PCS; 2017-04-10)
DX: O62.1 Secondary uterine inertia (principal); O41.1230 Chorioamnionitis, third trimester, not applicable or unspecified; O75.2 Pyrexia during labor, not elsewhere classified; O13.4 Gestational [pregnancy-induced] hypertension without significant proteinuria, complicating childbirth; O99.02 Anemia complicating childbirth; O77.0 Labor and delivery complicated by meconium in amniotic fluid; Z3A.39 39 weeks gestation of pregnancy; Z37.0 Single live birth
CPT/HCPCS: 01967; 01968; 01996; 36415; 36430; 59025; 81003; 85014; 85018; 85025; 85027; 86850; 86900; 86901; 86920; 86921; 86922; 88307; A9270-GY; J0287; J0290; J0595; J0690; J1200; J1580; J1885; J2270; J2405; J2590; J2765; J2795; J3010; J7030; J7050; J7120; P9016

== ENCOUNTER 2020-04-02 15:09 | Inpatient (IN) | payer MEDICAID ==
[2020-04-02 14:01] LABS: BLOOD UREA NITROGEN,BUN 6 mg/dL (7.0-18.0); CARBON DIOXIDE,CO2 21.5 mmol/L (21.0-32.0); CHLORIDE,CL 103 mmol/L (98-107); GLUCOSE RANDOM 70 mg/dL (74-106); POTASSIUM,K 3.8 mmol/L (3.5-5.1); SODIUM,NA 138 mmol/L (136-145)
[2020-04-02] MEDS ORDERED: Phenylephrine 1% 10 MG/ML SDV ONE (16:54)
[2020-04-02] MEDS ORDERED: Sodium Chloride 0.9% 2.5 ML Syringe FLUSH PRN (17:14)
[2020-04-02] MEDS ORDERED: Sodium Chloride 0.9% 10 ML Syringe FLUSH PRN (17:14)
[2020-04-02] MEDS ORDERED: Citric Acid/Sodium Citrate Solution 30 ML Cup PO ONE (17:14)
[2020-04-02] MEDS ORDERED: Sodium Chloride 0.9% 10 ML SDV IV PRN (17:14)
[2020-04-02] MEDS ORDERED: Oxytocin/0.9 % Sodium Chloride 30 UNIT/500 ML BAG IV SCH (17:15)
[2020-04-02] MEDS ORDERED: Lactated Ringers 1,000 ML IV SCH ×2 (17:15→20:45)
--- NOTE | 2020-04-02 18:00 | PCM.PREANE ---
Preanesthetic Assessment - Anesthesia/Transfusion/Family Hx Anesthesia History: Prior Anesthesia Without Reaction Family History of Anesthesia Reaction: No Transfusion History: Prior Transfusion Without Reaction - Review of Systems General: No Symptoms Pulmonary: No Symptoms Cardiovascular: No Symptoms Gastrointestinal: No Symptoms Neurological: No Symptoms Other: Reports: None - Physical Assessment Height: 1.6 m Weight: 95.708 kg ASA Class: 2 Mental Status: Alert & Oriented x3 Dentition: Reports: Normal Dentition ROM/Head Extension: Full - Lab Values: Laboratory Last Values WBC 7.10 K/uL (4.0-11.0) 04/02/20 13:00 RBC 4.23 M/uL (4.30-5.90) L 04/02/20 13:00 Hgb 12.0 g/dL (12.0-16.0) 04/02/20 13:00 Hct 36.2 % (36.0-46.0) 04/02/20 13:00 MCV 85.6 fL (80.0-98.0) 04/02/20 13:00 MCH 28.4 pg (27.0-32.0) 04/02/20 13:00 MCHC 33.1 g/dL (31.0-37.0) 04/02/20 13:00 RDW Std Deviation 43.5 fl (28.0-62.0) 04/02/20 13:00 RDW Coeff of Carlos 14 % (11.0-15.0) 04/02/20 13:00 Plt Count 248 K/uL (150-400) 04/02/20 13:00 MPV 9.70 fL (7.40-12.00) 04/02/20 13:00 Nucleated RBC % 0.0 /100WBC 04/02/20 13:00 Nucleated RBCs # 0 K/uL 04/02/20 13:00 Sodium 138 mmol/L (136-145) 04/02/20 13:00 Potassium 3.8 mmol/L (3.5-5.1) 04/02/20 13:00 Chloride 103 mmol/L (98-107) 04/02/20 13:00 Carbon Dioxide 21.5 mmol/L (21.0-32.0) 04/02/20 13:00 BUN 6 mg/dL (7.0-18.0) L 04/02/20 13:00 Creatinine 0.6 mg/dL (0.6-1.0) 04/02/20 13:00 Est Cr Clr Drug Dosing 114.44 mL/min 04/02/20 13:00 Estimated GFR (MDRD) > 60.0 ml/min 04/02/20 13:00 Glucose 70 mg/dL (74-106) L 04/02/20 13:00 Uric Acid 4.5 mg/dL (2.6-7.2) 04/02/20 13:00 Calcium 9.0 mg/dL (8.5-10.1) 04/02/20 13:00 Total Bilirubin 0.5 mg/dL (0.2-1.0) 04/02/20 13:00 AST 25 IU/L (15-37) 04/02/20 13:00 ALT 19 IU/L (14-63) 04/02/20 13:00 Alkaline Phosphatase 236 U/L (46-116) H 04/02/20 13:00 Total Protein 6.6 g/dL (6.4-8.2) 04/02/20 13:00 Albumin 2.8 g/dL (3.4-5.0) L 04/02/20 13:00 Globulin 3.8 g/dL (2.6-4.0) 04/02/20 13:00 Albumin/Globulin Ratio 0.7 (0.9-1.6) L 04/02/20 13:00 SARS-CoV-2 RNA (RT-PCR) NEGATIVE (NEGATIVE) 04/02/20 11:17 Blood Type O POSITIVE 04/02/20 13:00 Antibody Screen NEGATIVE 04/02/20 13:00 - Allergies Allergies/Adverse Reactions: Allergies Allergy/AdvReac Type Severity Reaction Status Date / Time No Known Allergies Allergy Verified 03/31/20 09:01 - Acknowledgements Anesthesia Type Planned: Spinal Pt an Appropriate Candidate for the Planned Anesthesia: Yes Alternatives and Risks of Anesthesia Discussed w Pt/Guardian: Yes Pt/Guardian Understands and Agrees with Anesthesia Plan: Yes PreAnesthesia Questionnaire HEENT History: Reports: Other (See Below) Other HEENT History: wears contacts/glasses Cardiovascular History: Reports: Other (See Below) Other Cardiovascular History: palpatations in the past "from stress" Respiratory History: Reports: Asthma Other Respiratory History: asthma as a child Gastrointestinal History: Reports: GERD, Helicobacter Pylori Genitourinary History: Reports: None 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 OB/BYN History: genital herpes Musculoskeletal History: Reports: None Neurological History: Reports: None Psychiatric History: Reports: None Endocrine/Metabolic History: Reports: Obesity/BMI 30+ Hematologic History: Reports: Blood Transfusion(s) Other Hematologic History: blood transfusion with prior c/section Immunologic History: Reports: None Oncologic (Cancer) History: Reports: None Dermatologic History: Reports: None - Infectious Disease History Infectious Disease History: Reports: Chicken Pox, Herpes - Past Surgical History Head Surgeries/Procedures: Reports: None HEENT Surgical History: Reports: Oral Surgery Cardiovascular Surgical History: Reports: None Respiratory Surgical History: Reports: None GI Surgical History: Reports: Colonoscopy, EGD Female Surgical History: Reports: Section Endocrine Surgical History: Reports: None Neurological Surgical History: Reports: None Musculoskeletal Surgical History: Reports: None Oncologic Surgical History: Reports: None Dermatological Surgical History: Reports: None - SUBSTANCE USE Smoking Status *Q: Never Smoker Tobacco Use Within Last Twelve Months: No Second Hand Smoke Exposure: No Recreational Drug Use History: No - HOME MEDS Home Medications: Home Meds No122/Iron/Folic Acid [ Multi Tablet] 1 tab PO DAILY 03/19/20 [History] valACYclovir HCl [Valtrex] 1 tab PO ASDIRECTED PRN 03/31/20 [History] - CURRENT (IN HOUSE) MEDS Current Meds: Current Medications Lactated Ringer's (Ringers, Lactated) 1,000 mls @ 500 mls/hr IV BOLUS OBED Last Admin: 04/02/20 17:47 Dose: 500 mls/hr Documented by: Oxytocin/Sodium Chloride (Oxytocin 30 Unit/500 Ml-Ns) 30 unit in 500 mls @ 250 mls/hr IV TITRATE OBED Sodium Chloride (Saline Flush) 10 ml FLUSH ASDIRECTED PRN PRN Reason: Keep Vein Open Sodium Chloride (Saline Flush) 2.5 ml FLUSH ASDIRECTED PRN PRN Reason: Keep Vein Open Sodium Chloride (Normal Saline) 10 ml IV ASDIRECTED PRN PRN Reason: IV Use Discontinued Medications Citric Acid/Sodium Citrate (Bicitra Solution) 30 ml PO ONETIME ONE Stop: 04/02/20 17:15 Phenylephrine HCl (Asael-Synephrine) Confirm Administered Dose 10 mg .ROUTE .HELIX BIOMEDIX- [facility] ONE Stop: 04/02/20 16:55
[2020-04-02] MEDS ORDERED: Morphine PF 10 MG/10 ML SDV ONE (18:02)
[2020-04-02] MEDS ORDERED: fentaNYL 100 MCG/2 ML SDV ONE (18:02)
[2020-04-02] MEDS ORDERED: Oxytocin 10 Units/1 ML SDV ONE ×2 (18:17→20:14)
[2020-04-02] MEDS ORDERED: Ondansetron 4 MG/2 ML SDV ONE (18:17)
[2020-04-02] MEDS ORDERED: Sodium Chloride 0.9% 20 ML ONE (18:27)
[2020-04-02] MEDS ORDERED: ceFAZolin 1 GM Vial ONE (18:27)
[2020-04-02] MEDS ORDERED: Acetaminophen/oxyCODONE 325-5 MG Tab PO PRN ×3 (18:53→20:37)
[2020-04-02] MEDS ORDERED: Nalbuphine 10 MG/1 ML Vial IVPUSH PRN (18:53)
[2020-04-02] MEDS ORDERED: fentaNYL 100 MCG/2 ML SDV IVPUSH PRN (18:53)
[2020-04-02] MEDS ORDERED: Tranexamic Acid 1,000 MG in Sodium Chloride 0.9% 100 ML IV PRN (20:37)
[2020-04-02] MEDS ORDERED: Ibuprofen 800 MG Tab PO PRN (20:37)
[2020-04-02] MEDS ORDERED: Ondansetron 4 MG/2 ML SDV IVPUSH PRN (20:37)
[2020-04-02] MEDS ORDERED: Misoprostol 200 MCG Tab RECTAL PRN (20:37)
[2020-04-02] MEDS ORDERED: Oxytocin 10 Units/1 ML SDV IM PRN (20:37)
[2020-04-02] MEDS ORDERED: Bisacodyl 10 MG Supp RECTAL PRN (20:37)
[2020-04-02] MEDS ORDERED: Methylergonovine 0.2 MG/1 ML Amp IM PRN (20:37)
[2020-04-02] MEDS ORDERED: diphenhydrAMINE 50 MG/ML SDV IVPUSH PRN (20:37)
[2020-04-02] MEDS ORDERED: Lanolin 100% Cream 7 GM Tube TOP PRN (20:37)
--- NOTE | 2020-04-02 20:37 | PCM.OPNOTE ---
- General Post-Op/Procedure Note Date of Surgery/Procedure: 04/02/20 Operative Procedure(s): Repeat Lower segment transverse Findings: Live female delivered at 1925 , 9/9 weight 4260g Pre Op Diagnosis: 29yo @ 38w0d cat 2FHT. CHTN Post-Op Diagnosis: same. Macrosomia Anesthesia Technique: Spinal Primary Surgeon: Shayne Maurer Anesthesia Provider: Dannie Sierra In Home Tutor: MS Varela Fluid Replacement, Intraop: 1,000 EBL in mLs: 1,000 Complications: None Condition: Good
[2020-04-02] MEDS ORDERED: Oxytocin/Lactated Ringers 30 UNIT/500 ML BAG IV SCH (20:45)
--- NOTE | 2020-04-02 20:55 | PCM.POSTAN ---
POST ANESTHESIA ASSESSMENT - MENTAL STATUS Mental Status: Alert, Oriented - VITAL SIGNS Vital Signs: Last Vital Signs Temp 36.6 C 04/02/20 20:25 Pulse 88 04/02/20 20:50 Resp 16 04/02/20 20:50 BP 129/82 04/02/20 20:50 Pulse Ox 97 04/02/20 20:50 - RESPIRATORY Respiratory Status: Respiratory Rate WNL, Airway Patent, O2 Saturation Stable - CARDIOVASCULAR CV Status: Pulse Rate WNL, Blood Pressure Stable - GASTROINTESTINAL GI Status: No Symptoms - POST OP HYDRATION Hydration Status: Adequate & Stable
[2020-04-02] MEDS: Ketorolac 30 MG/ML SDV IVPUSH SCH (21:30)
--- NOTE | 2020-04-02 21:51 | OR ---
SURGEON: ANJANA CLEMENT DATE OF PROCEDURE: 04/02/2020 PREOPERATIVE DIAGNOSES: 1. A 29-year-old, G4, P 1-0-2-1, at 38 weeks 0 days, with category 2 heart tracing. 2. Chronic hypertension. POSTOPERATIVE DIAGNOSES: 1. A 29-year-old, G4, P 1-0-2-1, at 38 weeks 0 days, with category 2 heart tracing. 2. Chronic hypertension. 3. macrosomia. 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 IV FLUIDS: 1000. ESTIMATED BLOOD LOSS: 1000. NOTES AND FINDINGS: Live female delivered at 1925. score is 9 and 9. Weight is 4260 g. BRIEF HISTORY: She is a 29-year-old, G4, P 1-0-2-1, at 38 weeks, who had history of a chronic hypertension. She was getting surveillance, and she was noted to have a 2- minute deceleration on tracing. As a result of this, she was encouraged to have a . She had a previous history of . As a result, she was explained risks, benefits, and alternatives, and she decided to proceed. DESCRIPTION OF PROCEDURE: The patient was taken to the operating room where spinal anesthesia was performed without difficulty. She was prepared and draped in the dorsal supine position with a leftward tilt. A Pfannenstiel skin incision was made on the previous incision and the keloid was removed from there and the incision was carried down to the fascia with the Bovie. The fascia was incised and extended laterally. The fascia was from the rectus muscles superiorly and inferiorly. Rectus muscle was in the midline in order to give access to the peritoneum. The peritoneum was then entered in via visualization and it was then expanded to reflect the lower uterine segment. The Jose Daniel retractor was then placed in to visualize the lower uterine segment. The bladder flap was created. Lower uterine incision was made with a scalpel, extended manually. The fetus was in cephalic position, was brought to the level of the incision. Fundal pressure was performed. The baby was delivered without difficulty. Cord was clamped and cut and the placenta was delivered via massage of the uterine fundus. The uterine cavity was then cleaned with moist laparotomy sponges. Then, the uterus was closed in 2 layers, first layer was with 0 Vicryl, second layer was with 0 Monocryl. Then, the Jose Daniel was removed. Incision was inspected, noted to be hemostatic again. Then, the adnexa were inspected. The ovary seemed enlarged, about 4 cm on both sides. The peritoneum was then closed when hemostasis was noted. Then, the fascia was closed with 0 Vicryl and the subcutaneous fat was closed with 3-0 plain gut and skin was closed with 3-0 Monocryl on a Bob needle. All instrument and pad counts were correct x2. The patient tolerated the procedure well and was taken to recovery room in stable condition. VALERIE / CLAUDETTE /[id number] THAIS
[2020-04-03] MEDS: Ketorolac 30 MG/ML SDV IVPUSH SCH ×3 (03:31→15:25)
[2020-04-03] MEDS: Docusate Sodium 100 MG Cap PO SCH ×2 (08:09→09:35)
--- NOTE | 2020-04-03 08:17 | PCM.PNPP ---
<Avery Blackwell - Last Filed: 04/03/20 08:21> - General Info Date of Service: 04/03/20 Subjective Update: Concepcion is feeling very well today. She has required no additional pain control overnight. She has ambulated and voided urine. She is and that has been going well. She had a 'gush' of blood from her vagina while urinating this morning, but has passed no clots. Lochia is moderate. Functional Status: Reports: Pain Controlled - Review of Systems General: Denies: Fever, Chills HEENT: Reports: No Symptoms Pulmonary: Denies: Shortness of Breath, Cough Cardiovascular: Denies: Chest Pain, Palpitations Gastrointestinal: Reports: Abdominal Pain, Constipation. Denies: Diarrhea, Nausea, Vomiting Genitourinary: Reports: Burning. Denies: Hematuria, Retention Musculoskeletal: Reports: No Symptoms Skin: Reports: No Symptoms Neurological: Reports: No Symptoms Psychiatric: Reports: No Symptoms - General Info Date of Service: 04/03/20 - Patient Data Vital Signs - Most Recent: Last Vital Signs Temp 96.9 F 04/03/20 04:00 Pulse 92 04/03/20 07:00 Resp 14 04/03/20 07:00 BP 134/83 04/03/20 04:00 Pulse Ox 93 L 04/03/20 07:00 Weight - Most Recent: 95.708 kg I&O - Last 24 Hours: Intake & Output 04/02/20 04/03/20 04/03/20 22:59 06:59 14:59 Intake Total 2100 1420 Output Total 100 725 Balance 1999 695 Lab Results - Last 24 Hours: Laboratory Results - last 24 hr 04/02/20 04/02/20 04/02/20 Range/Units 11:17 13:00 13:00 WBC 7.10 (4.0-11.0) K/uL RBC 4.23 L (4.30-5.90) M/uL Hgb 12.0 (12.0-16.0) g/dL Hct 36.2 (36.0-46.0) % MCV 85.6 (80.0-98.0) fL MCH 28.4 (27.0-32.0) pg MCHC 33.1 (31.0-37.0) g/dL RDW Std Deviation 43.5 (28.0-62.0) fl RDW Coeff of Carlos 14 (11.0-15.0) % Plt Count 248 (150-400) K/uL MPV 9.70 (7.40-12.00) fL Nucleated RBC % 0.0 /100WBC Nucleated RBCs # 0 K/uL Sodium (136-145) mmol/L Potassium (3.5-5.1) mmol/L Chloride (98-107) mmol/L Carbon Dioxide (21.0-32.0) mmol/L BUN (7.0-18.0) mg/dL Creatinine (0.6-1.0) mg/dL Est Cr Clr Drug Dosing mL/min Estimated GFR (MDRD) ml/min Glucose (74-106) mg/dL Uric Acid (2.6-7.2) mg/dL Calcium (8.5-10.1) mg/dL Total Bilirubin (0.2-1.0) mg/dL AST (15-37) IU/L ALT (14-63) IU/L Alkaline Phosphatase (46-116) U/L Total Protein (6.4-8.2) g/dL Albumin (3.4-5.0) g/dL Globulin (2.6-4.0) g/dL Albumin/Globulin Ratio (0.9-1.6) SARS-CoV-2 RNA (RT-PCR) NEGATIVE (NEGATIVE) Blood Type O POSITIVE Antibody Screen NEGATIVE 04/02/20 04/03/20 Range/Units 13:00 06:06 WBC (4.0-11.0) K/uL RBC (4.30-5.90) M/uL Hgb 9.8 L (12.0-16.0) g/dL Hct 30.6 L (36.0-46.0) % MCV (80.0-98.0) fL MCH (27.0-32.0) pg MCHC (31.0-37.0) g/dL RDW Std Deviation (28.0-62.0) fl RDW Coeff of Carlos (11.0-15.0) % Plt Count (150-400) K/uL MPV (7.40-12.00) fL Nucleated RBC % /100WBC Nucleated RBCs # K/uL Sodium 138 (136-145) mmol/L Potassium 3.8 (3.5-5.1) mmol/L Chloride 103 (98-107) mmol/L Carbon Dioxide 21.5 (21.0-32.0) mmol/L BUN 6 L (7.0-18.0) mg/dL Creatinine 0.6 (0.6-1.0) mg/dL Est Cr Clr Drug Dosing 114.44 mL/min Estimated GFR (MDRD) > 60.0 ml/min Glucose 70 L (74-106) mg/dL Uric Acid 4.5 (2.6-7.2) mg/dL Calcium 9.0 (8.5-10.1) mg/dL Total Bilirubin 0.5 (0.2-1.0) mg/dL AST 25 (15-37) IU/L ALT 19 (14-63) IU/L Alkaline Phosphatase 236 H (46-116) U/L Total Protein 6.6 (6.4-8.2) g/dL Albumin 2.8 L (3.4-5.0) g/dL Globulin 3.8 (2.6-4.0) g/dL Albumin/Globulin Ratio 0.7 L (0.9-1.6) SARS-CoV-2 RNA (RT-PCR) (NEGATIVE) Blood Type Antibody Screen Med Orders - Current: Current Medications Bisacodyl (Dulcolax) 10 mg RECTAL ONETIME PRN PRN Reason: Constipation Diphenhydramine HCl (Benadryl) 25 mg IVPUSH Q6H PRN PRN Reason: Itching or Nausea Docusate Sodium (Colace) 100 mg PO BID [facility] Last Admin: 04/03/20 08:09 Dose: Not Given Documented by: Emollient Ointment (Lansinoh Hpa) 0 gm TOP ASDIRECTED PRN PRN Reason: Sore Nipples Fentanyl (Sublimaze) 50 mcg IVPUSH Q5M PRN PRN Reason: Pain (severe 7-10) Stop: 04/03/20 18:54 Lactated Ringer's (Ringers, Lactated) 1,000 mls @ 500 mls/hr IV BOLUS [facility] Last Admin: 04/02/20 17:47 Dose: 500 mls/hr Documented by: Oxytocin/Sodium Chloride (Oxytocin 30 Unit/500 Ml-Ns) 30 unit in 500 mls @ 250 mls/hr IV TITRATE OBED Lactated Ringer's (Ringers, Lactated) 1,000 mls @ 125 mls/hr IV ASDIRECTED [facility] Last Admin: 04/03/20 01:11 Dose: 125 mls/hr Documented by: Oxytocin/Lactated Ringer's (Pitocin In Lr 30 Units/500 Ml) 30 unit in 500 mls @ 125 mls/hr IV TITRATE [facility]; Protocol Tranexamic Acid 1,000 mg/ (Sodium Chloride) 110 mls @ 660 mls/hr IV ONETIME PRN PRN Reason: Bleeding Ibuprofen (Motrin) 800 mg PO Q8H PRN PRN Reason: mild pain or fever Ketorolac Tromethamine (Toradol) 30 mg IVPUSH Q6H [facility] Stop: 04/03/20 21:31 Last Admin: 04/03/20 03:31 Dose: 30 mg Documented by: Methylergonovine Maleate (Methergine) 0.2 mg IM ONETIME PRN PRN Reason: Excessive Vaginal Bleeding Misoprostol (Cytotec) 1,000 mcg RECTAL ONETIME PRN PRN Reason: excessive bleeding Nalbuphine HCl (Nubain) 2.5 mg IVPUSH Q3H PRN PRN Reason: Pruritis Stop: 04/03/20 18:54 Ondansetron HCl (Zofran) 4 mg IVPUSH Q4H PRN PRN Reason: Nausea/Vomiting Oxycodone/Acetaminophen (Percocet 325-5 Mg) 1 tab PO ONETIME PRN PRN Reason: Pain (moderate 4-6) Oxycodone/Acetaminophen (Percocet 325-5 Mg) 1 tab PO Q4H PRN PRN Reason: Pain (moderate 4-6) Oxycodone/Acetaminophen (Percocet 325-5 Mg) 2 tab PO Q4H PRN PRN Reason: Pain (moderate 4-6) Oxytocin (Pitocin) 10 unit IM ASDIRECTED PRN PRN Reason: Excessive Vaginal Bleeding Sodium Chloride (Saline Flush) 10 ml FLUSH ASDIRECTED PRN PRN Reason: Keep Vein Open Sodium Chloride (Saline Flush) 2.5 ml FLUSH ASDIRECTED PRN PRN Reason: Keep Vein Open Sodium Chloride (Normal Saline) 10 ml IV ASDIRECTED PRN PRN Reason: IV Use Discontinued Medications Cefazolin Sodium (Ancef) Confirm Administered Dose 2 gm .ROUTE .STK-MED ONE Stop: 04/02/20 18:28 Citric Acid/Sodium Citrate (Bicitra Solution) 30 ml PO ONETIME ONE Stop: 04/02/20 17:15 Fentanyl (Sublimaze) Confirm Administered Dose 100 mcg .ROUTE .STK-MED ONE Stop: 04/02/20 18:03 Sodium Chloride (Normal Saline) Confirm Administered Dose 20 mls @ as directed .ROUTE .STK-MED ONE Stop: 04/02/20 18:28 Morphine Sulfate (Duramorph Pf) Confirm Administered Dose 10 mg .ROUTE .STK-MED ONE Stop: 04/02/20 18:03 Ondansetron HCl (Zofran) Confirm Administered Dose 4 mg .ROUTE .STK-MED ONE Stop: 04/02/20 18:18 Oxytocin (Pitocin) Confirm Administered Dose 20 unit .ROUTE .STK-MED ONE Stop: 04/02/20 18:18 Oxytocin (Pitocin) Confirm Administered Dose 20 unit .ROUTE .STK-MED ONE Stop: 04/02/20 20:15 Phenylephrine HCl (Asael-Synephrine) Confirm Administered Dose 10 mg .ROUTE .STK- MED ONE Stop: 04/02/20 16:55 - Infant Interaction Support Person: Significant Other - Recovery Exam Fundal Tone: Firm Fundal Level: 1 Fingerbreadths Below Umbilicus Fundal Placement: Midline Lochia Amount: Scant Lochia Color: Rubra/Red Perineum Description: Intact, Minimal Bruising/Swelling Episiotomy/Laceration: None Bladder Status: Voiding Urinary Elimination: Voided - Exam General: Alert, Oriented, No Acute Distress HEENT: Pupils Equal, Pupils Reactive Neck: Supple, Trachea Midline, No JVD Lungs: Clear to Auscultation, Normal Respiratory Effort. No: Crackles, Rales, Rhonchi Cardiovascular: Regular Rate, Regular Rhythm, No Murmurs. No: Gallops, Rubs GI/Abdominal Exam: Soft, Tender. No: Guarding, Rigid Extremities: Normal Inspection, Normal Range of Motion, Non-Tender, Pedal Edema (trace) Skin: Warm, Dry, Intact Wound/Incisions: Dressing Dry and Intact Neurological: No New Focal Deficit, Normal Speech, Normal Tone Psy/Mental Status: Alert, Normal Affect, Normal Mood - Problem List & Annotations (1) delivery delivered SNOMED Code(s): 906191027 Code(s): O82 - ENCOUNTER FOR DELIVERY WITHOUT INDICATION Status: Acute Current Visit: No - Problem List Review Problem List Initiated/Reviewed/Updated: Yes - Assessment Assessment:: 29yo PPD#1 s/p for non-reassuring heart monitoring. Doing well. - Plan Plan:: Support decision Pain control PRN Monitor lochia Routine care Discharge tomorrow <Shayne Maurer - Last Filed: 04/03/20 12:36> - General Info Subjective Update: Patient seen she denies any complains , she has good pain control , normal lochia , , tolerating regular diet and ambulating - Review of Systems Gastrointestinal: Reports: No Symptoms, Vomiting - Patient Data Vital Signs - Most Recent: Last Vital Signs Temp 36.1 C 04/03/20 08:00 Pulse 90 04/03/20 09:00 Resp 16 04/03/20 09:00 BP 130/79 04/03/20 08:00 Pulse Ox 91 L 04/03/20 09:00 I&O - Last 24 Hours: Intake & Output 04/02/20 04/03/20 04/03/20 22:59 06:59 14:59 Intake Total 2100 1420 Output Total 100 725 575 Balance 1999 695 -575 Lab Results - Last 24 Hours: Laboratory Results - last 24 hr 04/02/20 04/02/20 04/02/20 Range/Units 11:17 13:00 13:00 WBC 7.10 (4.0-11.0) K/uL RBC 4.23 L (4.30-5.90) M/uL Hgb 12.0 (12.0-16.0) g/dL Hct 36.2 (36.0-46.0) % MCV 85.6 (80.0-98.0) fL MCH 28.4 (27.0-32.0) pg MCHC 33.1 (31.0-37.0) g/dL RDW Std Deviation 43.5 (28.0-62.0) fl RDW Coeff of Carlos 14 (11.0-15.0) % Plt Count 248 (150-400) K/uL MPV 9.70 (7.40-12.00) fL Nucleated RBC % 0.0 /100WBC Nucleated RBCs # 0 K/uL Sodium (136-145) mmol/L Potassium (3.5-5.1) mmol/L Chloride (98-107) mmol/L Carbon Dioxide (21.0-32.0) mmol/L BUN (7.0-18.0) mg/dL Creatinine (0.6-1.0) mg/dL Est Cr Clr Drug Dosing mL/min Estimated GFR (MDRD) ml/min Glucose (74-106) mg/dL Uric Acid (2.6-7.2) mg/dL Calcium (8.5-10.1) mg/dL Total Bilirubin (0.2-1.0) mg/dL AST (15-37) IU/L ALT (14-63) IU/L Alkaline Phosphatase (46-116) U/L Total Protein (6.4-8.2) g/dL Albumin (3.4-5.0) g/dL Globulin (2.6-4.0) g/dL Albumin/Globulin Ratio (0.9-1.6) SARS-CoV-2 RNA (RT-PCR) NEGATIVE (NEGATIVE) Blood Type O POSITIVE Antibody Screen NEGATIVE 04/02/20 04/03/20 Range/Units 13:00 06:06 WBC (4.0-11.0) K/uL RBC (4.30-5.90) M/uL Hgb 9.8 L (12.0-16.0) g/dL Hct 30.6 L (36.0-46.0) % MCV (80.0-98.0) fL MCH (27.0-32.0) pg MCHC (31.0-37.0) g/dL RDW Std Deviation (28.0-62.0) fl RDW Coeff of Carlos (11.0-15.0) % Plt Count (150-400) K/uL MPV (7.40-12.00) fL Nucleated RBC % /100WBC Nucleated RBCs # K/uL Sodium 138 (136-145) mmol/L Potassium 3.8 (3.5-5.1) mmol/L Chloride 103 (98-107) mmol/L Carbon Dioxide 21.5 (21.0-32.0) mmol/L BUN 6 L (7.0-18.0) mg/dL Creatinine 0.6 (0.6-1.0) mg/dL Est Cr Clr Drug Dosing 114.44 mL/min Estimated GFR (MDRD) > 60.0 ml/min Glucose 70 L (74-106) mg/dL Uric Acid 4.5 (2.6-7.2) mg/dL Calcium 9.0 (8.5-10.1) mg/dL Total Bilirubin 0.5 (0.2-1.0) mg/dL AST 25 (15-37) IU/L ALT 19 (14-63) IU/L Alkaline Phosphatase 236 H (46-116) U/L Total Protein 6.6 (6.4-8.2) g/dL Albumin 2.8 L (3.4-5.0) g/dL Globulin 3.8 (2.6-4.0) g/dL Albumin/Globulin Ratio 0.7 L (0.9-1.6) SARS-CoV-2 RNA (RT-PCR) (NEGATIVE) Blood Type Antibody Screen Med Orders - Current: Current Medications Bisacodyl (Dulcolax) 10 mg RECTAL ONETIME PRN PRN Reason: Constipation Diphenhydramine HCl (Benadryl) 25 mg IVPUSH Q6H PRN PRN Reason: Itching or Nausea Docusate Sodium (Colace) 100 mg PO BID [facility] Last Admin: 04/03/20 09:35 Dose: 100 mg Documented by: Emollient Ointment (Lansinoh Hpa) 0 gm TOP ASDIRECTED PRN PRN Reason: Sore Nipples Fentanyl (Sublimaze) 50 mcg IVPUSH Q5M PRN PRN Reason: Pain (severe 7-10) Stop: 04/03/20 18:54 Lactated Ringer's (Ringers, Lactated) 1,000 mls @ 500 mls/hr IV BOLUS [facility] Last Admin: 04/02/20 17:47 Dose: 500 mls/hr Documented by: Oxytocin/Sodium Chloride (Oxytocin 30 Unit/500 Ml-Ns) 30 unit in 500 mls @ 250 mls/hr IV TITRATE [facility] Lactated Ringer's (Ringers, Lactated) 1,000 mls @ 125 mls/hr IV ASDIRECTED [facility] Last Admin: 04/03/20 01:11 Dose: 125 mls/hr Documented by: Oxytocin/Lactated Ringer's (Pitocin In Lr 30 Units/500 Ml) 30 unit in 500 mls @ 125 mls/hr IV TITRATE [facility]; Protocol Tranexamic Acid 1,000 mg/ (Sodium Chloride) 110 mls @ 660 mls/hr IV ONETIME PRN PRN Reason: Bleeding Ibuprofen (Motrin) 800 mg PO Q8H PRN PRN Reason: mild pain or fever Ketorolac Tromethamine (Toradol) 30 mg IVPUSH Q6H [facility] Stop: 04/03/20 21:31 Last Admin: 04/03/20 09:28 Dose: 30 mg Documented by: Methylergonovine Maleate (Methergine) 0.2 mg IM ONETIME PRN PRN Reason: Excessive Vaginal Bleeding Misoprostol (Cytotec) 1,000 mcg RECTAL ONETIME PRN PRN Reason: excessive bleeding Nalbuphine HCl (Nubain) 2.5 mg IVPUSH Q3H PRN PRN Reason: Pruritis Stop: 04/03/20 18:54 Ondansetron HCl (Zofran) 4 mg IVPUSH Q4H PRN PRN Reason: Nausea/Vomiting Oxycodone/Acetaminophen (Percocet 325-5 Mg) 1 tab PO ONETIME PRN PRN Reason: Pain (moderate 4-6) Oxycodone/Acetaminophen (Percocet 325-5 Mg) 1 tab PO Q4H PRN PRN Reason: Pain (moderate 4-6) Oxycodone/Acetaminophen (Percocet 325-5 Mg) 2 tab PO Q4H PRN PRN Reason: Pain (moderate 4-6) Oxytocin (Pitocin) 10 unit IM ASDIRECTED PRN PRN Reason: Excessive Vaginal Bleeding Sodium Chloride (Saline Flush) 10 ml FLUSH ASDIRECTED PRN PRN Reason: Keep Vein Open Sodium Chloride (Saline Flush) 2.5 ml FLUSH ASDIRECTED PRN PRN Reason: Keep Vein Open Sodium Chloride (Normal Saline) 10 ml IV ASDIRECTED PRN PRN Reason: IV Use Discontinued Medications Cefazolin Sodium (Ancef) Confirm Administered Dose 2 gm .ROUTE .STK-MED ONE Stop: 04/02/20 18:28 Citric Acid/Sodium Citrate (Bicitra Solution) 30 ml PO ONETIME ONE Stop: 04/02/20 17:15 Fentanyl (Sublimaze) Confirm Administered Dose 100 mcg .ROUTE .STK-MED ONE Stop: 04/02/20 18:03 Sodium Chloride (Normal Saline) Confirm Administered Dose 20 mls @ as directed .ROUTE .STK-MED ONE Stop: 04/02/20 18:28 Morphine Sulfate (Duramorph Pf) Confirm Administered Dose 10 mg .ROUTE .STK-MED ONE Stop: 04/02/20 18:03 Ondansetron HCl (Zofran) Confirm Administered Dose 4 mg .ROUTE .STK-MED ONE Stop: 04/02/20 18:18 Oxytocin (Pitocin) Confirm Administered Dose 20 unit .ROUTE .STK-MED ONE Stop: 04/02/20 18:18 Oxytocin (Pitocin) Confirm Administered Dose 20 unit .ROUTE .STK-MED ONE Stop: 04/02/20 20:15 Phenylephrine HCl (Asael-Synephrine) Confirm Administered Dose 10 mg .ROUTE .STK- MED ONE Stop: 04/02/20 16:55 - Problem List & Annotations (1) delivery delivered SNOMED Code(s): 603375433 Code(s): O82 - ENCOUNTER FOR DELIVERY WITHOUT INDICATION Status: Acute Current Visit: No - My Orders Last 24 Hours: My Active Orders 04/02/20 17:14 Patient Status [ADT] Routine Up ad Trish [RC] ASDIRECTED Sodium Chloride 0.9% [Normal Saline] 10 ml IV ASDIRECTED PRN Sodium Chloride 0.9% [Saline Flush] 10 ml FLUSH ASDIRECTED PRN Sodium Chloride 0.9% [Saline Flush] 2.5 ml FLUSH ASDIRECTED PRN Peripheral IV Insertion Adult [OM.PC] Routine Schedule Procedure [COMM] Per Unit Routine 04/02/20 17:15 Lactated Ringers [Ringers, Lactated] 1,000 ml IV BOLUS Oxytocin/0.9 % Sodium Chloride [Oxytocin 30 Unit/500 ML-NS] 30 unit in 500 ml IV TITRATE 04/02/20 20:37 Patient Status [ADT] Routine Antiembolic Devices [RC] PER UNIT ROUTINE Communication Order [RC] PER UNIT ROUTINE Communication Order [RC] PER UNIT ROUTINE Communication Order [RC] Per Unit Routine May Shower [RC] ASDIRECTED RT Incentive Spirometry [RC] Q2HWA Acetaminophen/oxyCODONE [Percocet 325-5 MG] 1 tab PO Q4H PRN Acetaminophen/oxyCODONE [Percocet 325-5 MG] 2 tab PO Q4H PRN Ibuprofen [Motrin] 800 mg PO Q8H PRN Lanolin [Lansinoh HPA] See Dose Instructions TOP ASDIRECTED PRN Methylergonovine [Methergine] 0.2 mg IM ONETIME PRN Ondansetron [Zofran] 4 mg IVPUSH Q4H PRN Oxytocin [Pitocin] 10 unit IM ASDIRECTED PRN Tranexamic Acid [Cyklokapron] 1,000 mg Sodium Chloride 0.9% [Normal Saline] 100 ml IV ONETIME bisacodyL [Dulcolax] 10 mg RECTAL ONETIME PRN diphenhydrAMINE [Benadryl] 25 mg IVPUSH Q6H PRN miSOPROStoL [Cytotec] 1,000 mcg RECTAL ONETIME PRN Assess Lochia [WOMSER] Per Unit Routine Assess Uterine Involution [WOMSER] Per Unit Routine Breast Pump [WOMSER] Per Unit Routine Peripheral IV Discontinue [OM.PC] Routine Sequential Compression Device [OM.PC] Per Unit Routine Resuscitation Status Routine 04/02/20 20:45 Lactated Ringers [Ringers, Lactated] 1,000 ml IV ASDIRECTED Oxytocin/Lactated Ringers [Pitocin in LR 30 Units/500 ML] 30 unit in 500 ml IV TITRATE 04/02/20 21:00 Docusate Sodium [Colace] 100 mg PO BID 04/02/20 21:30 Ketorolac [Toradol] 30 mg IVPUSH Q6H 04/03/20 Breakfast Regular Diet [DIET] - Assessment Assessment:: Stable Post op, She has met all postoperative goal - Plan Plan:: Want to go home Discharge home today Pain control as needed
--- NOTE | 2020-04-03 08:54 | PCM48HPAN ---
Post Anesthesia Note - EVALUATION WITHIN 48HRS OF ANESTHETIC Vital Signs in Normal Range: Yes Patient Participated in Evaluation: Yes Respiratory Function Stable: Yes Airway Patent: Yes Cardiovascular Function Stable: Yes Hydration Status Stable: Yes Pain Control Satisfactory: Yes Nausea and Vomiting Control Satisfactory: Yes Mental Status Recovered: Yes Vital Signs: Last Vital Signs Temp 36.1 C 04/03/20 04:00 Pulse 92 04/03/20 07:00 Resp 14 04/03/20 07:00 BP 134/83 04/03/20 04:00 Pulse Ox 93 L 04/03/20 07:00 - COMMENTS/OBSERVATIONS Free Text/Narrative:: Denies any complaints.
[2020-04-03 19:54] VITALS: BP 121/93; PULSE 99
== END 2020-04-03 22:40 | disposition home or self-care (01) | DRG 788 ==
LOC: OBSVTOIN 15:09 → MW.OB 15:09
PROVIDERS: ADMIT Obstetrics & Gynecology; ATTEND Obstetrics & Gynecology
PROC: 10D00Z1 Extraction of Products of Conception, Low, Open Approach (ICD-10-PCS; principal; 2020-04-02)
DX: O16.4 Unspecified maternal hypertension, complicating childbirth (principal); O36.63X0 Maternal care for excessive fetal growth, third trimester, not applicable or unspecified; O76 Abnormality in fetal heart rate and rhythm complicating labor and delivery; Z20.828 Contact with and (suspected) exposure to other viral communicable diseases; Z3A.38 38 weeks gestation of pregnancy; Z37.0 Single live birth
CPT/HCPCS: 36415; 59025; 80053; 84550; 85014; 85018; 85027; 86850; 86900; 86901; A9270-GY; J0690; J1885; J2270; J2370; J2405; J2590; J3010; J7120; U0002

== ENCOUNTER 2020-04-09 21:49 | Inpatient (IN) | payer MEDICAID ==
[2020-04-09] MEDS ORDERED: Sodium Chloride 0.9% 2.5 ML Syringe FLUSH PRN (22:38)
[2020-04-09] MEDS ORDERED: Sodium Chloride 0.9% 10 ML Syringe FLUSH PRN (22:38)
[2020-04-09] MEDS ORDERED: hydrALAZINE 20 MG/ML SDV IVPUSH ONE (22:48)
--- NOTE | 2020-04-09 23:01 | EDM.PDOC ---
ED HPI GENERAL MEDICAL PROBLEM - General Chief Complaint: Cardiovascular Problem Stated Complaint: SWELLING IN FEET Time Seen by Provider: 04/09/20 22:28 - History of Present Illness INITIAL COMMENTS - FREE TEXT/NARRATIVE: History of present illness: 29-year-old female who is 7 days via presenting with bilateral lower extremity swelling and facial swelling for the last 3 days. She had a history of preeclampsia and she was had performed 2 weeks early on April 02. course was unremarkable per the patient and she was discharged home after 24 hours. She had been fine for a few days until 3 days ago when she noticed worsening swelling in the legs, even after sleeping overnight and swelling in her face and lips which did improve throughout the day after she was upright. She has been keeping an eye on her blood pressure at home as well as she had preeclampsia during the , and it has been high, in the 150s at home. Denies chest pain but she does report that when she is la [place]andy flat she feels short of breath. No leg pain. She did not require any antihypertensives during as her blood pressure stayed relatively well controlled in the 130s. Review of systems: As per history of present illness and below otherwise all systems reviewed and negative. Past medical history: As per history of present illness and as reviewed below otherwise noncontributory. Preeclampsia Surgical history: As per history of present illness and as reviewed below otherwise noncontributory. Social history: No reported history of drug or alcohol abuse. Denies tobacco Family history: As per history of present illness and as reviewed below otherwise noncontributory. Physical exam: GEN: no acute distress, well appearing HEENT: Atraumatic, normocephalic, mucous membranes moist, Neck: supple, nontender. Lungs: No respiratory distress. Heart: RRR Abdomen: Soft, nondistended, nontender. Back: nontender Extremities: Bilateral lower extremities with 1+ pitting edema. No calf tenderness. Atraumatic. Neurovascularly intact. Neuro: Awake, alert, oriented. Neuro Exam nonfocal. Skin: warm, dry, no lesions Diagnostics: [] Therapeutics: [] MDM: Impression: [] Plan: [] Definitive disposition and diagnosis as appropriate pending reevaluation and review of above. - Related Data Allergies Allergy/AdvReac Type Severity Reaction Status Date / Time No Known Allergies Allergy Verified 04/09/20 22:36 Home Meds: Home Meds . [No Known Home Meds] 04/09/20 [History] Past Medical History HEENT History: Reports: Other (See Below) Other HEENT History: wears contacts/glasses Cardiovascular History: Reports: Other (See Below) Other Cardiovascular History: palpatations in the past "from stress" Respiratory History: Reports: Asthma Other Respiratory History: asthma as a child Gastrointestinal History: Reports: GERD, Helicobacter Pylori Genitourinary History: Reports: None ACCOUNTING ANALYST History: Reports: Other ACCOUNTING ANALYST History: genital herpes Musculoskeletal History: Reports: None Neurological History: Reports: None Psychiatric History: Reports: None Endocrine/Metabolic History: Reports: Obesity/BMI 30+ Hematologic History: Reports: Blood Transfusion(s) Other Hematologic History: blood transfusion with prior c/section Immunologic History: Reports: None Oncologic (Cancer) History: Reports: None Dermatologic History: Reports: None - Infectious Disease History Infectious Disease History: Reports: Chicken Pox, Herpes - Past Surgical History Head Surgeries/Procedures: Reports: None HEENT Surgical History: Reports: Oral Surgery Cardiovascular Surgical History: Reports: None Respiratory Surgical History: Reports: None GI Surgical History: Reports: Colonoscopy, EGD Female Surgical History: Reports: Section Endocrine Surgical History: Reports: None Neurological Surgical History: Reports: None Musculoskeletal Surgical History: Reports: None Oncologic Surgical History: Reports: None Dermatological Surgical History: Reports: None Social & Family History - Family History Family Medical History: Noncontributory - Tobacco Use Smoking Status *Q: Never Smoker - Caffeine Use Caffeine Use: Reports: None - Recreational Drug Use Recreational Drug Use: No ED ROS GENERAL - Review of Systems Review Of Systems: See Below (See HPI) ED EXAM, GENERAL - Physical Exam Exam: See Below (See HPI) EKG INTERPRETATION EKG Interpretation Comments: EKG performed today at 10:42 PM, sinus rhythm, rate 73, no acute ischemia or STEMI, no QTC prolongation. Course - Vital Signs Text/Narrative:: Likely preeclampsia Blood pressure elevated on arrival here. 7 days . History of preeclampsia. Labs show anemia which is stable from baseline as well as proteinuria. Urine does also have moderate blood and positive leukocytes and nitrates as well as 1+ bacteria. Therefore will cover with Keflex for possible UTI in the setting of recent and likely recent indwelling catheter use. Patient did report some mild dyspnea. Chest x-ray negative and no rales on exam. BNP minimally elevated. Troponin negative. Systolic blood pressure 180 on arrival here. Given hydralazine IV with improvement in blood pressure. Discussed with AUTO PAINTER, Dr. Doyle dental professional who does recommend admission to the hospital. Last Recorded V/S: Last Vital Signs Temp 96.3 F L 04/09/20 22:32 Pulse 83 04/10/20 01:09 Resp 14 04/10/20 01:09 BP 160/91 H 04/10/20 01:09 Pulse Ox 99 04/10/20 01:09 - Orders/Labs/Meds Orders: Active Orders 24 hr Category Date Time Status Patient Status [ADT] Routine ADT 04/10/20 00:30 Active EKG Documentation Completion [RC] STAT Care 04/09/20 22:39 Active Sodium Chloride 0.9% [Saline Flush] Med 04/09/20 22:38 Active 10 ml FLUSH ASDIRECTED PRN Sodium Chloride 0.9% [Saline Flush] Med 04/09/20 22:38 Active 2.5 ml FLUSH ASDIRECTED PRN Saline Lock Insert [OM.PC] Stat Oth 04/09/20 22:38 Ordered Medication Orders Sodium Chloride (Saline Flush) 10 ml FLUSH ASDIRECTED PRN PRN Reason: Keep Vein Open Sodium Chloride (Saline Flush) 2.5 ml FLUSH ASDIRECTED PRN PRN Reason: Keep Vein Open Labs: Laboratory Tests 04/09/20 04/09/20 04/09/20 Range/Units 22:45 22:45 22:45 WBC 8.67 (4.0-11.0) K/uL RBC 3.59 L (4.30-5.90) M/uL Hgb 10.0 L (12.0-16.0) g/dL Hct 31.1 L (36.0-46.0) % MCV 86.6 (80.0-98.0) fL MCH 27.9 (27.0-32.0) pg MCHC 32.2 (31.0-37.0) g/dL RDW Std Deviation 44.9 (28.0-62.0) fl RDW Coeff of Carlos 14 (11.0-15.0) % Plt Count 361 (150-400) K/uL MPV 8.60 (7.40-12.00) fL Neut % (Auto) 65.4 (48.0-80.0) % Lymph % (Auto) 28.5 (16.0-40.0) % Dare % (Auto) 3.8 (0.0-15.0) % Eos % (Auto) 2.2 (0.0-7.0) % Baso % (Auto) 0.1 (0.0-1.5) % Neut # (Auto) 5.7 (1.4-5.7) K/uL Lymph # (Auto) 2.5 H (0.6-2.4) K/uL Dare # (Auto) 0.3 (0.0-0.8) K/uL Eos # (Auto) 0.2 (0.0-0.7) K/uL Baso # (Auto) 0.0 (0.0-0.1) K/uL Nucleated RBC % 0.0 /100WBC Nucleated RBCs # 0 K/uL Sodium 140 (136-145) mmol/L Potassium 3.9 (3.5-5.1) mmol/L Chloride 105 (98-107) mmol/L Carbon Dioxide 25.1 (21.0-32.0) mmol/L BUN 12 (7.0-18.0) mg/dL Creatinine 0.7 (0.6-1.0) mg/dL Est Cr Clr Drug Dosing 85.18 mL/min Estimated GFR (MDRD) > 60.0 ml/min Glucose 84 (74-106) mg/dL Calcium 9.0 (8.5-10.1) mg/dL Total Bilirubin 0.2 (0.2-1.0) mg/dL AST 24 (15-37) IU/L ALT 33 (14-63) IU/L Alkaline Phosphatase 142 H (46-116) U/L Troponin I < 0.050 (0.000-0.056) ng/mL B-Natriuretic Peptide 146 H (<100) PG/ML Total Protein 6.4 (6.4-8.2) g/dL Albumin 2.9 L (3.4-5.0) g/dL Globulin 3.5 (2.6-4.0) g/dL Albumin/Globulin Ratio 0.8 L (0.9-1.6) TSH 3rd Generation 4.38 H (0.36-3.74) uIU/mL Urine Color Urine Appearance Urine pH (5.0-8.0) Ur Specific [place] (1.001-1.035) Urine Protein (NEGATIVE) mg/dL Urine Glucose (UA) (NEGATIVE) mg/dL Urine Ketones (NEGATIVE) mg/dL Urine Occult Blood (NEGATIVE) Urine Nitrite (NEGATIVE) Urine Bilirubin (NEGATIVE) Urine Ictotest Urine Urobilinogen (<2.0) EU/dL Ur Leukocyte Esterase (NEGATIVE) Urine RBC (0-2/HPF) Urine WBC (0-5/HPF) Ur Epithelial Cells (NONE-FEW) Urine Bacteria (NEGATIVE) Urine Mucus (NONE-MOD) Urinalysis Comment 04/09/20 Range/Units 23:00 WBC (4.0-11.0) K/uL RBC (4.30-5.90) M/uL Hgb (12.0-16.0) g/dL Hct (36.0-46.0) % MCV (80.0-98.0) fL MCH (27.0-32.0) pg MCHC (31.0-37.0) g/dL RDW Std Deviation (28.0-62.0) fl RDW Coeff of Carlos (11.0-15.0) % Plt Count (150-400) K/uL MPV (7.40-12.00) fL Neut % (Auto) (48.0-80.0) % Lymph % (Auto) (16.0-40.0) % Dare % (Auto) (0.0-15.0) % Eos % (Auto) (0.0-7.0) % Baso % (Auto) (0.0-1.5) % Neut # (Auto) (1.4-5.7) K/uL Lymph # (Auto) (0.6-2.4) K/uL Dare # (Auto) (0.0-0.8) K/uL Eos # (Auto) (0.0-0.7) K/uL Baso # (Auto) (0.0-0.1) K/uL Nucleated RBC % /100WBC Nucleated RBCs # K/uL Sodium (136-145) mmol/L Potassium (3.5-5.1) mmol/L Chloride (98-107) mmol/L Carbon Dioxide (21.0-32.0) mmol/L BUN (7.0-18.0) mg/dL Creatinine (0.6-1.0) mg/dL Est Cr Clr Drug Dosing mL/min Estimated GFR (MDRD) ml/min Glucose (74-106) mg/dL Calcium (8.5-10.1) mg/dL Total Bilirubin (0.2-1.0) mg/dL AST (15-37) IU/L ALT (14-63) IU/L Alkaline Phosphatase (46-116) U/L Troponin I (0.000-0.056) ng/mL B-Natriuretic Peptide (<100) PG/ML Total Protein (6.4-8.2) g/dL Albumin (3.4-5.0) g/dL Globulin (2.6-4.0) g/dL Albumin/Globulin Ratio (0.9-1.6) TSH 3rd Generation (0.36-3.74) uIU/mL Urine Color RED Urine Appearance CLOUDY Urine pH 7.5 (5.0-8.0) Ur Specific [place] 1.025 (1.001-1.035) Urine Protein >=300 H (NEGATIVE) mg/dL Urine Glucose (UA) NEGATIVE (NEGATIVE) mg/dL Urine Ketones TRACE H (NEGATIVE) mg/dL Urine Occult Blood LARGE H (NEGATIVE) Urine Nitrite POSITIVE H (NEGATIVE) Urine Bilirubin SMALL H (NEGATIVE) Urine Ictotest NEGATIVE Urine Urobilinogen 1.0 (<2.0) EU/dL Ur Leukocyte Esterase SMALL H (NEGATIVE) Urine RBC TOO NUMEROUS TO CT H (0-2/HPF) Urine WBC 10-15 (0-5/HPF) Ur Epithelial Cells MODERATE (NONE-FEW) Urine Bacteria 1+ H (NEGATIVE) Urine Mucus LIGHT (NONE-MOD) Urinalysis Comment Meds: Medications Generic Name Dose Route Start Last Admin Trade Name Freq PRN Reason Stop Dose Admin Sodium Chloride 10 ml 04/09/20 22:38 Saline Flush FLUSH ASDIRECTED PRN Keep Vein Open Sodium Chloride 2.5 ml 04/09/20 22:38 Saline Flush FLUSH ASDIRECTED PRN Keep Vein Open Discontinued Medications Generic Name Dose Route Start Last Admin Trade Name Freq PRN Reason Stop Dose Admin Cephalexin 1,000 mg 04/10/20 01:08 04/10/20 01:17 Keflex PO 04/10/20 01:09 1,000 mg ONETIME ONE Administration Hydralazine HCl 10 mg 04/09/20 22:48 04/09/20 22:56 Apresoline IVPUSH 04/09/20 22:49 10 mg ONETIME ONE Administration - Re-Assessments/Exams Free Text/Narrative Re-Assessment/Exam: 04/10/20 00:15 The patient's blood pressure is improved on reassessment. She is in no acute distress. Discussed lab results and need to discuss her results with ACCOUNTING ANALYST on- call and possible need for admission. The patient agrees with this plan. 04/10/20 00:28 Dr. Doyle called back. We discussed the case. Based on patient's elevated blood pressure, she does recommend that we admit the patient to the OB floor. She will call over there and they will start magnesium there. Departure - Departure Time of Disposition: 00:28 Disposition: Refer to Observation Clinical Impression: Pre-eclampsia, , UTI (urinary tract infection) Preeclampsia Qualifiers: Trimester: unspecified trimester Qualified Code(s): O14.90 - Unspecified pre- eclampsia, unspecified trimester Sepsis Event Note (ED) - Evaluation Sepsis Screening Result: No Definite Risk - Focused Exam Vital Signs: Vital Signs Temp Pulse Resp BP Pulse Ox 04/10/20 00:10 81 14 147/93 H 99 04/09/20 22:57 84 14 148/88 H 100 04/09/20 22:32 96.3 F L 78 19 183/109 H 97 - My Orders Last 24 Hours: My Active Orders 04/09/20 22:38 Sodium Chloride 0.9% [Saline Flush] 10 ml FLUSH ASDIRECTED PRN Sodium Chloride 0.9% [Saline Flush] 2.5 ml FLUSH ASDIRECTED PRN Saline Lock Insert [OM.PC] Stat 04/09/20 22:39 EKG Documentation Completion [RC] STAT 04/10/20 00:30 Patient Status [ADT] Routine - Assessment/Plan Last 24 Hours: My Active Orders 04/09/20 22:38 Sodium Chloride 0.9% [Saline Flush] 10 ml FLUSH ASDIRECTED PRN Sodium Chloride 0.9% [Saline Flush] 2.5 ml FLUSH ASDIRECTED PRN Saline Lock Insert [OM.PC] Stat 04/09/20 22:39 EKG Documentation Completion [RC] STAT 04/10/20 00:30 Patient Status [ADT] Routine
[2020-04-09 23:18] LABS: BLOOD UREA NITROGEN,BUN 12 mg/dL (7.0-18.0); CARBON DIOXIDE,CO2 25.1 mmol/L (21.0-32.0); CHLORIDE,CL 105 mmol/L (98-107); GLUCOSE RANDOM 84 mg/dL (74-106); POTASSIUM,K 3.9 mmol/L (3.5-5.1); SODIUM,NA 140 mmol/L (136-145)
--- NOTE | 2020-04-09 23:51 | CR ---
HISTORY: Dyspnea. Lower extremity swelling. TECHNIQUE: Two-view chest. COMPARISON: None. FINDINGS: Lungs are clear. No pleural effusion or pneumothorax. Pulmonary vasculature is within normal limits. Upper normal size cardiomediastinal silhouette. IMPRESSION: No cardiopulmonary abnormality. Dictated by Sami Warren MD @ Apr 09 2020 11:47PM Signed by Dr. Sami Warrne @ Apr 09 2020 11:49PM
[2020-04-10] MEDS ORDERED: Cephalexin 500 MG Cap PO ONE (01:08)
[2020-04-10] MEDS ORDERED: Sodium Chloride 0.9% 10 ML SDV IV PRN (01:58)
[2020-04-10] MEDS ORDERED: Sodium Chloride 0.9% 10 ML Syringe FLUSH PRN (01:58)
[2020-04-10] MEDS ORDERED: Sodium Chloride 0.9% 2.5 ML Syringe FLUSH PRN (01:58)
[2020-04-10] MEDS ORDERED: Calcium Gluconate 10% 1 GM/10 ML SDV IV PRN (01:58)
[2020-04-10] MEDS ORDERED: Magnesium Sulfate/Water 4 GM in Premix Bag 1 BAG IV ONE (02:30)
[2020-04-10] MEDS ORDERED: Lactated Ringers 1,000 ML IV SCH (02:30)
[2020-04-10] MEDS: Magnesium Sulfate/Water 20 GM/500 ML BAG IV SCH ×3 (02:50→23:12)
[2020-04-10] MEDS ORDERED: Ondansetron 4 MG/2 ML SDV IVPUSH PRN (06:58)
[2020-04-10] MEDS ORDERED: Promethazine 25 MG/ML SDV IM PRN (06:58)
[2020-04-10] MEDS ORDERED: Ibuprofen 600 MG Tab PO PRN (06:58)
[2020-04-10] MEDS ORDERED: Furosemide 20 MG in Sodium Chloride 0.9% 50 ML IV ONE (07:12)
[2020-04-10] MEDS ORDERED: Acetaminophen 500 MG Tab PO PRN (07:13)
--- NOTE | 2020-04-10 07:19 | PCM.HP.2 ---
H&P History of Present Illness - General Date of Service: 04/10/20 Admit Problem/Dx: Admission Diagnosis/Problem Admission Diagnosis/Problem Preeclampsia in period Source of Information: Patient History Limitations: Reports: No Limitations - History of Present Illness Initial Comments - Free Text/Narative: Patient is status post repeat c section 04/02/2020. She has a history of hypertension, however not taking meds during the or afterwards. She has been monitoring blood pressures at home and have been 130/80s/ She became increasingly swollen across her hands and feet--to the point of feeling some shortness of breath when laying on her back yesterday. Subsequently blood pressure 155/90 at home. Thus she presented to ED. Blood pressure in ED was severe range with systolic 180s. Given iv labetalol and blood pressure decreased to 140/90s. Labs are overall reassuring, does have proteinuria. Normal LFTs and platelets. Denies headache or visual changes. Otherwise been healing well from csection, is . - Related Data Allergies/Adverse Reactions: Allergies Allergy/AdvReac Type Severity Reaction Status Date / Time No Known Allergies Allergy Verified 04/09/20 22:36 Home Medications: Home Meds . [No Known Home Meds] 04/09/20 [History] Past Medical History HEENT History: Reports: Other (See Below) Other HEENT History: wears contacts/glasses Cardiovascular History: Reports: Other (See Below) Other Cardiovascular History: palpatations in the past "from stress" Respiratory History: Reports: Asthma Other Respiratory History: asthma as a child Gastrointestinal History: Reports: GERD, Helicobacter Pylori Genitourinary History: Reports: None [employer] History: Reports: Other OB/BYN History: genital herpes Musculoskeletal History: Reports: None Neurological History: Reports: None Psychiatric History: Reports: None Endocrine/Metabolic History: Reports: Obesity/BMI 30+ Hematologic History: Reports: Blood Transfusion(s) Other Hematologic History: blood transfusion with prior c/section Immunologic History: Reports: None Oncologic (Cancer) History: Reports: None Dermatologic History: Reports: None - Infectious Disease History Infectious Disease History: Reports: Chicken Pox, Herpes - Past Surgical History Head Surgeries/Procedures: Reports: None HEENT Surgical History: Reports: Oral Surgery Cardiovascular Surgical History: Reports: None Respiratory Surgical History: Reports: None GI Surgical History: Reports: Colonoscopy, EGD Female Surgical History: Reports: Section Endocrine Surgical History: Reports: None Neurological Surgical History: Reports: None Musculoskeletal Surgical History: Reports: None Oncologic Surgical History: Reports: None Dermatological Surgical History: Reports: None Social & Family History - Family History Family Medical History: Noncontributory - Tobacco Use Smoking Status *Q: Never Smoker - Caffeine Use Caffeine Use: Reports: None - Recreational Drug Use Recreational Drug Use: No H&P Review of Systems - Review of Systems: Review Of Systems: See Below Free Text/Narrative: She has 2+ pitting edema along lower extremities General: Reports: Fatigue. Denies: Fever, Chills, Malaise, Weakness Pulmonary: Reports: Shortness of Breath (while on back). Denies: Wheezing, Cough Cardiovascular: Denies: Chest Pain, Palpitations, Lightheadedness Gastrointestinal: Reports: No Symptoms. Denies: Abdominal Pain Genitourinary: Reports: No Symptoms Musculoskeletal: Reports: No Symptoms Skin: Reports: No Symptoms Psychiatric: Reports: No Symptoms Neurological: Reports: Tingling (in hands). Denies: Headache Hematologic/Lymphatic: Reports: No Symptoms Immunologic: Reports: No Symptoms Exam - Exam Exam: See Below - Vital Signs Vital Signs: Last Vital Signs Temp 36.4 C 04/10/20 04:00 Pulse 96 04/10/20 07:00 Resp 16 04/10/20 07:00 BP 149/89 H 04/10/20 07:00 Pulse Ox 98 04/10/20 07:00 Weight: 92.6 kg - Exam General: Alert, Oriented Neck: Supple, Trachea Midline. No: Thyromegaly Lungs: Normal Respiratory Effort Cardiovascular: Regular Rate, Regular Rhythm GI/Abdominal Exam: Normal Bowel Sounds, Soft Back Exam: Normal Inspection Extremities: Pedal Edema (2+). No: Carmen's Sign Peripheral Pulses: 2+: Radial (L), Radial (R), Popliteal (L), Popliteal (R) Skin: Warm, Dry, Intact Neurological: Reflexes Equal Bilateral Neuro Extensive - Mental Status: Alert, Oriented x3, Normal Mood/Affect, Memory Intact Neuro Extensive - Motor, Sensory, Reflexes: CN II-XII Intact, Normal Reflexes Psychiatric: Alert, Normal Affect, Normal Mood - Patient Data Lab Results Last 24 hrs: Laboratory Results - last 24 hr 04/09/20 04/09/20 04/09/20 Range/Units 22:45 22:45 22:45 WBC 8.67 (4.0-11.0) K/uL RBC 3.59 L (4.30-5.90) M/uL Hgb 10.0 L (12.0-16.0) g/dL Hct 31.1 L (36.0-46.0) % MCV 86.6 (80.0-98.0) fL MCH 27.9 (27.0-32.0) pg MCHC 32.2 (31.0-37.0) g/dL RDW Std Deviation 44.9 (28.0-62.0) fl RDW Coeff of Carlos 14 (11.0-15.0) % Plt Count 361 (150-400) K/uL MPV 8.60 (7.40-12.00) fL Neut % (Auto) 65.4 (48.0-80.0) % Lymph % (Auto) 28.5 (16.0-40.0) % [place] % (Auto) 3.8 (0.0-15.0) % Eos % (Auto) 2.2 (0.0-7.0) % Baso % (Auto) 0.1 (0.0-1.5) % Neut # (Auto) 5.7 (1.4-5.7) K/uL Lymph # (Auto) 2.5 H (0.6-2.4) K/uL [place] # (Auto) 0.3 (0.0-0.8) K/uL Eos # (Auto) 0.2 (0.0-0.7) K/uL Baso # (Auto) 0.0 (0.0-0.1) K/uL Nucleated RBC % 0.0 /100WBC Nucleated RBCs # 0 K/uL Sodium 140 (136-145) mmol/L Potassium 3.9 (3.5-5.1) mmol/L Chloride 105 (98-107) mmol/L Carbon Dioxide 25.1 (21.0-32.0) mmol/L BUN 12 (7.0-18.0) mg/dL Creatinine 0.7 (0.6-1.0) mg/dL Est Cr Clr Drug Dosing 85.18 mL/min Estimated GFR (MDRD) > 60.0 ml/min Glucose 84 (74-106) mg/dL Calcium 9.0 (8.5-10.1) mg/dL Total Bilirubin 0.2 (0.2-1.0) mg/dL AST 24 (15-37) IU/L ALT 33 (14-63) IU/L Alkaline Phosphatase 142 H (46-116) U/L Troponin I < 0.050 (0.000-0.056) ng/mL B-Natriuretic Peptide 146 H (<100) PG/ML Total Protein 6.4 (6.4-8.2) g/dL Albumin 2.9 L (3.4-5.0) g/dL Globulin 3.5 (2.6-4.0) g/dL Albumin/Globulin Ratio 0.8 L (0.9-1.6) TSH 3rd Generation 4.38 H (0.36-3.74) uIU/mL Urine Color Urine Appearance Urine pH (5.0-8.0) Ur Specific [place] (1.001-1.035) Urine Protein (NEGATIVE) mg/dL Urine Glucose (UA) (NEGATIVE) mg/dL Urine Ketones (NEGATIVE) mg/dL Urine Occult Blood (NEGATIVE) Urine Nitrite (NEGATIVE) Urine Bilirubin (NEGATIVE) Urine Ictotest Urine Urobilinogen (<2.0) EU/dL Ur Leukocyte Esterase (NEGATIVE) Urine RBC (0-2/HPF) Urine WBC (0-5/HPF) Ur Epithelial Cells (NONE-FEW) Urine Bacteria (NEGATIVE) Urine Mucus (NONE-MOD) Urinalysis Comment COVID-19 ([place]) (NEGATIVE) 04/09/20 04/10/20 Range/Units 23:00 00:50 WBC (4.0-11.0) K/uL RBC (4.30-5.90) M/uL Hgb (12.0-16.0) g/dL Hct (36.0-46.0) % MCV (80.0-98.0) fL MCH (27.0-32.0) pg MCHC (31.0-37.0) g/dL RDW Std Deviation (28.0-62.0) fl RDW Coeff of Carlos (11.0-15.0) % Plt Count (150-400) K/uL MPV (7.40-12.00) fL Neut % (Auto) (48.0-80.0) % Lymph % (Auto) (16.0-40.0) % [place] % (Auto) (0.0-15.0) % Eos % (Auto) (0.0-7.0) % Baso % (Auto) (0.0-1.5) % Neut # (Auto) (1.4-5.7) K/uL Lymph # (Auto) (0.6-2.4) K/uL [place] # (Auto) (0.0-0.8) K/uL Eos # (Auto) (0.0-0.7) K/uL Baso # (Auto) (0.0-0.1) K/uL Nucleated RBC % /100WBC Nucleated RBCs # K/uL Sodium (136-145) mmol/L Potassium (3.5-5.1) mmol/L Chloride (98-107) mmol/L Carbon Dioxide (21.0-32.0) mmol/L BUN (7.0-18.0) mg/dL Creatinine (0.6-1.0) mg/dL Est Cr Clr Drug Dosing mL/min Estimated GFR (MDRD) ml/min Glucose (74-106) mg/dL Calcium (8.5-10.1) mg/dL Total Bilirubin (0.2-1.0) mg/dL AST (15-37) IU/L ALT (14-63) IU/L Alkaline Phosphatase (46-116) U/L Troponin I (0.000-0.056) ng/mL B-Natriuretic Peptide (<100) PG/ML Total Protein (6.4-8.2) g/dL Albumin (3.4-5.0) g/dL Globulin (2.6-4.0) g/dL Albumin/Globulin Ratio (0.9-1.6) TSH 3rd Generation (0.36-3.74) uIU/mL Urine Color RED Urine Appearance CLOUDY Urine pH 7.5 (5.0-8.0) Ur Specific [place] 1.025 (1.001-1.035) Urine Protein >=300 H (NEGATIVE) mg/dL Urine Glucose (UA) NEGATIVE (NEGATIVE) mg/dL Urine Ketones TRACE H (NEGATIVE) mg/dL Urine Occult Blood LARGE H (NEGATIVE) Urine Nitrite POSITIVE H (NEGATIVE) Urine Bilirubin SMALL H (NEGATIVE) Urine Ictotest NEGATIVE Urine Urobilinogen 1.0 (<2.0) EU/dL Ur Leukocyte Esterase SMALL H (NEGATIVE) Urine RBC TOO NUMEROUS TO CT H (0-2/HPF) Urine WBC 10-15 (0-5/HPF) Ur Epithelial Cells MODERATE (NONE-FEW) Urine Bacteria 1+ H (NEGATIVE) Urine Mucus LIGHT (NONE-MOD) Urinalysis Comment COVID-19 ([place]) NEGATIVE (NEGATIVE) Result Diagrams: 04/09/20 22:45 04/09/20 22:45 Sepsis Event Note - Evaluation Sepsis Screening Result: No Definite Risk - Focused Exam Vital Signs: Vital Signs Temp Pulse Resp BP Pulse Ox 04/10/20 07:00 96 16 149/89 H 98 04/10/20 06:09 81 17 144/74 H 04/10/20 05:30 81 18 137/92 H 97 04/10/20 05:00 83 16 142/75 H 98 04/10/20 04:30 78 17 136/94 H 99 04/10/20 04:00 36.4 C 18 148/89 H 97 04/10/20 03:50 81 17 150/100 H 99 04/10/20 03:30 85 18 145/88 H 99 04/10/20 03:15 81 16 143/78 H 99 04/10/20 02:59 80 19 139/83 99 04/10/20 02:45 36.8 C 16 133/90 99 04/10/20 02:40 17 133/82 98 04/10/20 02:35 69 16 123/79 98 04/10/20 02:30 73 18 138/91 H 97 04/10/20 02:15 16 143/88 H 97 04/10/20 01:50 36.4 C 17 147/89 H 98 04/10/20 01:09 83 14 160/91 H 99 04/10/20 00:10 81 14 147/93 H 99 04/09/20 22:57 84 14 148/88 H 100 04/09/20 22:32 35.7 C L 78 19 183/109 H 97 Date Exam was Performed: 04/10/20 Time Exam was Performed: 07:14 - Problem List (1) Pre-eclampsia, SNOMED Code(s): 003148296, [id number] ICD Code: O14.95 - UNSPECIFIED PRE-ECLAMPSIA, COMPLICATING THE PUERPERIUM Status: Acute Current Visit: Yes Problem List Initiated/Reviewed/Updated: Yes Orders Last 24hrs: Active Orders 24 hr Category Date Time Status Patient Status [ADT] Routine ADT 04/10/20 00:30 Active Patient Status [ADT] Routine ADT 04/10/20 01:58 Active Antiembolic Devices [RC] PER UNIT ROUTINE Care 04/10/20 06:59 Active Bedrest [RC] ASDIRECTED Care 04/10/20 01:58 Active Communication Order [RC] PRN Care 04/10/20 01:58 Active Communication Order [RC] PRN Care 04/10/20 01:58 Active EKG Documentation Completion [RC] STAT Care 04/09/20 22:39 Active Equipment to Bedside [RC] PRN Care 04/10/20 02:00 Active Height and Weight [RC] DAILY Care 04/10/20 01:58 Active Intake and Output [RC] QSHIFT Care 04/10/20 01:58 Active Notify Provider Intake and Out [RC] ASDIRECTED Care 04/10/20 06:59 Active Notify Provider Status Change [RC] ASDIRECTED Care 04/10/20 02:00 Active Notify Provider Vital Signs [RC] ASDIRECTED Care 04/10/20 06:59 Active Notify Provider [RC] PRN Care 04/10/20 01:58 Active Oxygen Therapy [RC] PRN Care 04/10/20 01:58 Active RT Incentive Spirometry [RC] Q2HWA Care 04/10/20 06:59 Active Vital Signs [RC] ASDIRECTED Care 04/10/20 01:58 Active Regular Diet [DIET] Diet 04/10/20 Breakfast Active CBC WITH AUTO DIFF [HEME] AM Lab 04/11/20 05:11 Ordered COMPREHENSIVE METABOLIC PN,CMP [CHEM] AM Lab 04/11/20 05:11 Ordered MAGNESIUM [CHEM] Q6H Lab 04/10/20 06:46 Received MAGNESIUM [CHEM] Q6H Lab 04/10/20 12:30 Ordered MAGNESIUM [CHEM] Q6H Lab 04/10/20 18:30 Ordered MAGNESIUM [CHEM] Q6H Lab 04/11/20 00:30 Ordered Acetaminophen [Tylenol Extra Strength] Med 04/10/20 07:13 Ordered 1,000 mg PO Q6H PRN Calcium Gluconate Med 04/10/20 01:58 Active 1 gm IV ASDIRECTED PRN Docusate Sodium [Colace] Med 04/10/20 09:00 Active 100 mg PO BID Furosemide [Lasix] 20 mg Med 04/10/20 07:12 Ordered Sodium Chloride 0.9% [Normal Saline] 50 ml IV ONETIME Ibuprofen [Motrin] Med 04/10/20 06:58 Active 600 mg PO Q6H PRN Labetalol [Normodyne] Med 04/10/20 09:00 Ordered 200 mg PO BID Lactated Ringers [Ringers, Lactated] 1,000 ml Med 04/10/20 02:30 Active IV ASDIRECTED Magnesium Sulfate/Water [Magnesium Sulfate in Water Med 04/10/20 02:00 Active Premix] 20 gm in 500 ml IV ASDIRECTED Ondansetron [Zofran] Med 04/10/20 06:58 Active 4 mg IVPUSH Q6H PRN Promethazine [Phenergan] Med 04/10/20 06:58 Active 25 mg IM Q6H PRN Sodium Chloride 0.9% [Normal Saline] Med 04/10/20 01:58 Active 10 ml IV ASDIRECTED PRN Sodium Chloride 0.9% [Saline Flush] Med 04/09/20 22:38 Active 10 ml FLUSH ASDIRECTED PRN Sodium Chloride 0.9% [Saline Flush] Med 04/10/20 01:58 Active 10 ml FLUSH ASDIRECTED PRN Sodium Chloride 0.9% [Saline Flush] Med 04/09/20 22:38 Active 2.5 ml FLUSH ASDIRECTED PRN Sodium Chloride 0.9% [Saline Flush] Med 04/10/20 01:58 Active 2.5 ml FLUSH ASDIRECTED PRN Deep Tendon Reflexes [WOMSER] Q1H Ot 04/10/20 02:00 Ordered Deep Tendon Reflexes [WOMSER] Q1H Ot 04/10/20 03:00 Ordered Deep Tendon Reflexes [WOMSER] Q1H Ot 04/10/20 04:00 Ordered Deep Tendon Reflexes [WOMSER] Q1H Ot 04/10/20 05:00 Ordered Deep Tendon Reflexes [WOMSER] Q1H Ot 04/10/20 06:00 Ordered Deep Tendon Reflexes [WOMSER] Q1 Ot 04/10/20 07:00 Ordered Deep Tendon Reflexes [WOMSER] Q1 Ot 04/10/20 08:00 Ordered Deep Tendon Reflexes [WOMSER] [address] 04/10/20 09:00 Ordered Deep Tendon Reflexes [WOMSER] [facility] 04/10/20 10:00 Ordered Deep Tendon Reflexes [WOMSER] Q1[facility] 04/10/20 11:00 Ordered Deep Tendon Reflexes [WOMSER] Q1[facility] 04/10/20 12:00 Ordered Deep Tendon Reflexes [WOMSER] Q1[facility] 04/10/20 13:00 Ordered Deep Tendon Reflexes [WOMSER] [address] 04/10/20 14:00 Ordered Deep Tendon Reflexes [WOMSER] [address] 04/10/20 15:00 Ordered Deep Tendon Reflexes [WOMSER] [address] 04/10/20 16:00 Ordered Deep Tendon Reflexes [WOMSER] [address] 04/10/20 17:00 Ordered Deep Tendon Reflexes [WOMSER] [address] 04/10/20 18:00 Ordered Deep Tendon Reflexes [WOMSER] [address] 04/10/20 19:00 Ordered Deep Tendon Reflexes [WOMSER] [address] 04/10/20 20:00 Ordered Deep Tendon Reflexes [WOMSER] [address] 04/10/20 21:00 Ordered Deep Tendon Reflexes [WOMSER] [address] 04/10/20 22:00 Ordered Deep Tendon Reflexes [WOMSER] [address] 04/10/20 23:00 Ordered Deep Tendon Reflexes [WOMSER] [address] 04/11/20 00:00 Ordered Deep Tendon Reflexes [WOMSER] [facility] Ot 04/11/20 01:00 Ordered Peripheral IV Discontinue [OM.PC] Routine Oth 04/10/20 06:59 Ordered Peripheral IV Insertion Adult [OM.PC] Routine Oth 04/10/20 01:58 Ordered Saline Lock Insert [OM.PC] Stat Ot 04/09/20 22:38 Ordered Sequential Compression Device [OM.PC] Per Unit Routine Oth 04/10/20 06:59 Ordered Resuscitation Status Routine Resus Stat 04/10/20 06:58 Ordered Medication Orders Calcium Gluconate (Calcium Gluconate) 1 gm IV ASDIRECTED PRN PRN Reason: respiratory distress Docusate Sodium (Colace) 100 mg PO BID OBED Magnesium Sulfate (Magnesium Sulfate In Water Premix) 20 gm in 500 mls @ 50 mls/hr IV ASDIRECTED OBED; Protocol Last Admin: 04/10/20 02:50 Dose: 2 gm/hr, 50 mls/hr Documented by: JO Lactated Ringer's (Ringers, Lactated) 1,000 mls @ 50 mls/hr IV ASDIRECTED OBED Last Infusion: 04/10/20 02:50 Dose: 5 mls/hr Documented by: Admin: 04/10/20 02:29 Dose: 50 mls/hr Documented by: JO Furosemide 20 mg/ Sodium (Chloride) 52 mls @ 100 mls/hr IV ONETIME ONE Stop: 04/10/20 07:43 Ibuprofen (Motrin) 600 mg PO Q6H PRN PRN Reason: Pain (mild 1-3) Labetalol HCl (Normodyne) 200 mg PO BID OBED Ondansetron HCl (Zofran) 4 mg IVPUSH Q6H PRN PRN Reason: Nausea/Vomiting Promethazine HCl (Phenergan) 25 mg IM Q6H PRN PRN Reason: Nausea/Vomiting Sodium Chloride (Saline Flush) 10 ml FLUSH ASDIRECTED PRN PRN Reason: Keep Vein Open Sodium Chloride (Saline Flush) 2.5 ml FLUSH ASDIRECTED PRN PRN Reason: Keep Vein Open Sodium Chloride (Saline Flush) 10 ml FLUSH ASDIRECTED PRN PRN Reason: Keep Vein Open Sodium Chloride (Saline Flush) 2.5 ml FLUSH ASDIRECTED PRN PRN Reason: Keep Vein Open Sodium Chloride (Normal Saline) 10 ml IV ASDIRECTED PRN PRN Reason: IV Use Assessment/Plan Comment:: Status post repeat c section 04/02/2020 preeclampsia, severe range blood pressures Patient admitted, initiated magnesium prophpylaxis. Will begin labetalol orally since responded well to iv labetalol. Since dose of lasix 20 mg as well via iv Noted her BNP slightly elevated and TSH also. Will repeat with morning labs as well as check Free T4. Patient agrees to plan of care. BPs improved in 140/90s currently. Dr Miramontes will assume care after 8 am.
[2020-04-10] MEDS ORDERED: Furosemide 20 MG/2 ML VIAL IVPUSH ONE (07:30)
[2020-04-10] MEDS: Labetalol 100 MG Tab PO SCH ×2 (08:14→21:07)
[2020-04-10] MEDS: Docusate Sodium 100 MG Cap PO SCH ×2 (08:14→21:07)
--- NOTE | 2020-04-10 08:54 | PCM.SN.2 ---
- Free Text/Narrative Note: Patient admitted for severe preclampsia due to Orthopnea , generalized swelling and severe range bp. Patient seen at bedside and reports feeling much better . SHe is on Magnessium for seizure prophylaxis I started Macrobid for UTI U/O: 50s - 100s per hour VSS: 130s - 140s/80s - 90s, HR: 80s - 90s , R : 14 - 18s Imp; Preclampsia , UTI Plan Continue Magnessium for 24hrs Labetalol 200mg bid Encourage pumping Magnessium check
[2020-04-10] MEDS: Nitrofurantoin Monohydrate/Macrocrystalline 100 MG Cap PO SCH ×2 (09:23→21:07)
[2020-04-11 06:35] LABS: BLOOD UREA NITROGEN,BUN 10 mg/dL (7.0-18.0); CARBON DIOXIDE,CO2 26.3 mmol/L (21.0-32.0); CHLORIDE,CL 103 mmol/L (98-107); GLUCOSE RANDOM 95 mg/dL (74-106); POTASSIUM,K 3.5 mmol/L (3.5-5.1); SODIUM,NA 138 mmol/L (136-145)
--- NOTE | 2020-04-11 08:29 | PCM.PN ---
- General Info Date of Service: 04/11/20 Admission Dx/Problem (Free Text): Patient doing better , denies headache , RUQ pain and BV BP: 130s - 150s/80s- 90s Functional Status: Reports: Pain Controlled, Tolerating Diet, Ambulating, Urinating - Review of Systems General: Reports: No Symptoms HEENT: Reports: No Symptoms Pulmonary: Reports: No Symptoms Cardiovascular: Reports: No Symptoms Gastrointestinal: Reports: No Symptoms Genitourinary: Reports: No Symptoms Musculoskeletal: Reports: No Symptoms Skin: Reports: No Symptoms Neurological: Reports: No Symptoms Psychiatric: Reports: No Symptoms - Patient Data Vitals - Most Recent: Last Vital Signs Temp 36.8 C 04/11/20 07:56 Pulse 86 04/11/20 07:56 Resp 16 04/11/20 07:56 BP 139/84 04/11/20 07:56 Pulse Ox 98 04/11/20 07:56 Weight - Most Recent: 87.589 kg I&O - Last 24 Hours: Intake & Output 04/10/20 04/11/20 04/11/20 22:59 06:59 14:59 Intake Total 400 Output Total 1325 800 Balance -925 -800 Lab Results Last 24 Hours: Laboratory Results - last 24 hr 04/10/20 04/10/20 04/11/20 Range/Units 12:45 18:46 00:30 WBC (4.0-11.0) K/uL RBC (4.30-5.90) M/uL Hgb (12.0-16.0) g/dL Hct (36.0-46.0) % MCV (80.0-98.0) fL MCH (27.0-32.0) pg MCHC (31.0-37.0) g/dL RDW Std Deviation (28.0-62.0) fl RDW Coeff of Carlos (11.0-15.0) % Plt Count (150-400) K/uL MPV (7.40-12.00) fL Neut % (Auto) (48.0-80.0) % Lymph % (Auto) (16.0-40.0) % [place] % (Auto) (0.0-15.0) % Eos % (Auto) (0.0-7.0) % Baso % (Auto) (0.0-1.5) % Neut # (Auto) (1.4-5.7) K/uL Lymph # (Auto) (0.6-2.4) K/uL [place] # (Auto) (0.0-0.8) K/uL Eos # (Auto) (0.0-0.7) K/uL Baso # (Auto) (0.0-0.1) K/uL Nucleated RBC % /100WBC Nucleated RBCs # K/uL Sodium (136-145) mmol/L Potassium (3.5-5.1) mmol/L Chloride (98-107) mmol/L Carbon Dioxide (21.0-32.0) mmol/L BUN (7.0-18.0) mg/dL Creatinine (0.6-1.0) mg/dL Est Cr Clr Drug Dosing mL/min Estimated GFR (MDRD) ml/min Glucose (74-106) mg/dL Calcium (8.5-10.1) mg/dL Magnesium 5.5 H 6.1 H 6.5 H (1.8-2.4) mg/dL Total Bilirubin (0.2-1.0) mg/dL AST (15-37) IU/L ALT (14-63) IU/L Alkaline Phosphatase (46-116) U/L B-Natriuretic Peptide (<100) PG/ML Total Protein (6.4-8.2) g/dL Albumin (3.4-5.0) g/dL Globulin (2.6-4.0) g/dL Albumin/Globulin Ratio (0.9-1.6) Free T4 (0.76-1.46) ng/dL TSH 3rd Generation (0.36-3.74) uIU/mL 04/11/20 04/11/20 04/11/20 Range/Units 05:43 05:43 05:43 WBC 7.24 (4.0-11.0) K/uL RBC 3.63 L (4.30-5.90) M/uL Hgb 10.1 L (12.0-16.0) g/dL Hct 31.5 L (36.0-46.0) % MCV 86.8 (80.0-98.0) fL MCH 27.8 (27.0-32.0) pg MCHC 32.1 (31.0-37.0) g/dL RDW Std Deviation 46.1 (28.0-62.0) fl RDW Coeff of Carlos 15 (11.0-15.0) % Plt Count 371 (150-400) K/uL MPV 8.40 (7.40-12.00) fL Neut % (Auto) 71.8 (48.0-80.0) % Lymph % (Auto) 22.1 (16.0-40.0) % [place] % (Auto) 3.9 (0.0-15.0) % Eos % (Auto) 2.1 (0.0-7.0) % Baso % (Auto) 0.1 (0.0-1.5) % Neut # (Auto) 5.2 (1.4-5.7) K/uL Lymph # (Auto) 1.6 (0.6-2.4) K/uL [place] # (Auto) 0.3 (0.0-0.8) K/uL Eos # (Auto) 0.2 (0.0-0.7) K/uL Baso # (Auto) 0.0 (0.0-0.1) K/uL Nucleated RBC % 0.0 /100WBC Nucleated RBCs # 0 K/uL Sodium 138 (136-145) mmol/L Potassium 3.5 (3.5-5.1) mmol/L Chloride 103 (98-107) mmol/L Carbon Dioxide 26.3 (21.0-32.0) mmol/L BUN 10 (7.0-18.0) mg/dL Creatinine 0.7 (0.6-1.0) mg/dL Est Cr Clr Drug Dosing 85.18 mL/min Estimated GFR (MDRD) > 60.0 ml/min Glucose 95 (74-106) mg/dL Calcium 6.8 L (8.5-10.1) mg/dL Magnesium (1.8-2.4) mg/dL Total Bilirubin 0.4 (0.2-1.0) mg/dL AST 17 (15-37) IU/L ALT 27 (14-63) IU/L Alkaline Phosphatase 130 H (46-116) U/L B-Natriuretic Peptide 35 (<100) PG/ML Total Protein 6.5 (6.4-8.2) g/dL Albumin 2.9 L (3.4-5.0) g/dL Globulin 3.6 (2.6-4.0) g/dL Albumin/Globulin Ratio 0.8 L (0.9-1.6) Free T4 (0.76-1.46) ng/dL TSH 3rd Generation 2.57 (0.36-3.74) uIU/mL 04/11/20 Range/Units 05:43 WBC (4.0-11.0) K/uL RBC (4.30-5.90) M/uL Hgb (12.0-16.0) g/dL Hct (36.0-46.0) % MCV (80.0-98.0) fL MCH (27.0-32.0) pg MCHC (31.0-37.0) g/dL RDW Std Deviation (28.0-62.0) fl RDW Coeff of Carlos (11.0-15.0) % Plt Count (150-400) K/uL MPV (7.40-12.00) fL Neut % (Auto) (48.0-80.0) % Lymph % (Auto) (16.0-40.0) % [place] % (Auto) (0.0-15.0) % Eos % (Auto) (0.0-7.0) % Baso % (Auto) (0.0-1.5) % Neut # (Auto) (1.4-5.7) K/uL Lymph # (Auto) (0.6-2.4) K/uL [place] # (Auto) (0.0-0.8) K/uL Eos # (Auto) (0.0-0.7) K/uL Baso # (Auto) (0.0-0.1) K/uL Nucleated RBC % /100WBC Nucleated RBCs # K/uL Sodium (136-145) mmol/L Potassium (3.5-5.1) mmol/L Chloride (98-107) mmol/L Carbon Dioxide (21.0-32.0) mmol/L BUN (7.0-18.0) mg/dL Creatinine (0.6-1.0) mg/dL Est Cr Clr Drug Dosing mL/min Estimated GFR (MDRD) ml/min Glucose (74-106) mg/dL Calcium (8.5-10.1) mg/dL Magnesium (1.8-2.4) mg/dL Total Bilirubin (0.2-1.0) mg/dL AST (15-37) IU/L ALT (14-63) IU/L Alkaline Phosphatase (46-116) U/L B-Natriuretic Peptide (<100) PG/ML Total Protein (6.4-8.2) g/dL Albumin (3.4-5.0) g/dL Globulin (2.6-4.0) g/dL Albumin/Globulin Ratio (0.9-1.6) Free T4 0.83 (0.76-1.46) ng/dL TSH 3rd Generation (0.36-3.74) uIU/mL Med Orders - Current: Current Medications Acetaminophen (Tylenol Extra Strength) 1,000 mg PO Q6H PRN PRN Reason: Headache Calcium Gluconate (Calcium Gluconate) 1 gm IV ASDIRECTED PRN PRN Reason: respiratory distress Docusate Sodium (Colace) 100 mg PO BID [facility] Last Admin: 04/10/20 21:07 Dose: 100 mg Documented by: Magnesium Sulfate (Magnesium Sulfate In Water Premix) 20 gm in 500 mls @ 50 mls/hr IV ASDIRECTED [facility]; Protocol Last Titration: 04/11/20 02:48 Dose: 0 gm/hr, 0 mls/hr Documented by: Lactated Ringer's (Ringers, Lactated) 1,000 mls @ 50 mls/hr IV ASDIRECTED [facility] Last Infusion: 04/10/20 02:50 Dose: 5 mls/hr Documented by: Ibuprofen (Motrin) 600 mg PO Q6H PRN PRN Reason: Pain (mild 1-3) Labetalol HCl (Normodyne) 200 mg PO BID [facility] Last Admin: 04/10/20 21:07 Dose: 200 mg Documented by: Nitrofurantoin Macrocrystals (Macrobid) 100 mg PO BID [facility] Last Admin: 04/10/20 21:07 Dose: 100 mg Documented by: Ondansetron HCl (Zofran) 4 mg IVPUSH Q6H PRN PRN Reason: Nausea/Vomiting Promethazine HCl (Phenergan) 25 mg IM Q6H PRN PRN Reason: Nausea/Vomiting Sodium Chloride (Saline Flush) 10 ml FLUSH ASDIRECTED PRN PRN Reason: Keep Vein Open Sodium Chloride (Saline Flush) 2.5 ml FLUSH ASDIRECTED PRN PRN Reason: Keep Vein Open Sodium Chloride (Saline Flush) 10 ml FLUSH ASDIRECTED PRN PRN Reason: Keep Vein Open Sodium Chloride (Saline Flush) 2.5 ml FLUSH ASDIRECTED PRN PRN Reason: Keep Vein Open Sodium Chloride (Normal Saline) 10 ml IV ASDIRECTED PRN PRN Reason: IV Use Discontinued Medications Cephalexin (Keflex) 1,000 mg PO ONETIME ONE Stop: 04/10/20 01:09 Last Admin: 04/10/20 01:17 Dose: 1,000 mg Documented by: Furosemide (Lasix) 20 mg IVPUSH NOW ONE Stop: 04/10/20 07:31 Last Admin: 04/10/20 08:15 Dose: 20 mg Documented by: Hydralazine HCl (Apresoline) 10 mg IVPUSH ONETIME ONE Stop: 04/09/20 22:49 Last Admin: 04/09/20 22:56 Dose: 10 mg Documented by: Magnesium Sulfate 4 gm/ Premix 100 mls @ 300 mls/hr IV BOLUS ONE Stop: 04/10/20 02:49 Last Admin: 04/10/20 02:30 Dose: 333 mls/hr Documented by: - Exam General: Alert HEENT: Pupils Equal Neck: Supple Lungs: Clear to Auscultation Cardiovascular: Regular Rate, Regular Rhythm GI/Abdominal Exam: Normal Bowel Sounds (Female) Exam: Normal External Exam Back Exam: Normal Inspection Extremities: Normal Inspection Sepsis Event Note - Evaluation Sepsis Screening Result: No Definite Risk - Focused Exam Vital Signs: Vital Signs Temp Pulse Pulse Resp BP BP Pulse Ox 04/11/20 07:56 36.8 C 86 16 139/84 98 04/11/20 06:20 36.9 C 102 H 16 144/89 H 97 04/11/20 01:05 93 15 138/79 95 04/10/20 22:05 130/91 H 04/10/20 21:59 131/59 L 04/10/20 21:07 90 153/93 H Date Exam was Performed: 04/11/20 Time Exam was Performed: 08:25 - Problem List & Annotations (1) Pre-eclampsia, SNOMED Code(s): 883808765, 584198091 Code(s): O14.95 - UNSPECIFIED PRE-ECLAMPSIA, COMPLICATING THE PUERPERIUM Status: Acute Current Visit: Yes - Problem List Review Problem List Initiated/Reviewed/Updated: Yes - My Orders Last 24 Hours: My Active Orders 04/10/20 09:00 Nitrofurantoin [place]/Macrocryst [Macrobid] 100 mg PO BID - Assessment Assessment:: 29yo s/p 1 week readmitted for severe preclampsia Breathing improved , Lungs clear to auscultation Pedal edema improved 1+ s/p Mag from 2am - Plan Plan:: Patient was to go home today Due 1 BP in 150s/90s range i will increase Labetalol to 300mg bid if BP is well controlled for next 6-8 hrs , i will discharge home with strict precautions
[2020-04-11] MEDS ORDERED: Labetalol 100 MG Tab PO SCH (09:00)
[2020-04-11] MEDS: Nitrofurantoin Monohydrate/Macrocrystalline 100 MG Cap PO SCH (09:02)
[2020-04-11] MEDS: Docusate Sodium 100 MG Cap PO SCH (09:02)
[2020-04-11 15:01] VITALS: BP 134/94; PULSE 92
--- NOTE | 2020-04-11 15:29 | PCM.SN.2 ---
- Free Text/Narrative Note: Patient BP reviewed ranging from 130s - 140s/80s - 90s Denies any complains Plan Discharge home Preclampsia precaution Complete UTI medication
== END 2020-04-11 16:15 | disposition home or self-care (01) | DRG 776 ==
LOC: MW.ED 21:49 → MW.OB 04-10 00:30 → OBSVTOIN 04-10 01:58
PROVIDERS: ADMIT Obstetrics & Gynecology; ATTEND Obstetrics & Gynecology
DX: O14.15 Severe pre-eclampsia, complicating the puerperium (principal); O86.20 Urinary tract infection following delivery, unspecified; Z20.828 Contact with and (suspected) exposure to other viral communicable diseases
CPT/HCPCS: 36415; 71046; 71046-26; 80053; 81001; 83735; 83880; 84439; 84443; 84484; 85025; 93005; 96374; 99283; 99284-25; A9270-GY; J0360; J3475; J7120; U0002